=== PATIENT | female | born 1945 | race African-American/Black ===

== ENCOUNTER 2017-12-07 17:47 | Inpatient (IN) | payer MEDICARE ==
[~2017-12-07] VITALS: Ht 167.6 cm; Wt 78.9 kg
[2017-12-07] MEDS ORDERED: CYMBALTA30 MG ORAL (18:07)
[2017-12-07] MEDS ORDERED: METOPROLOL TART50 M1 ORAL (18:07)
[2017-12-07] MEDS ORDERED: BENAZEPRIL HCL20 MG ORAL (18:07)
[2017-12-07] MEDS ORDERED: AMLODIPINE BESY10 MG ORAL (18:07)
[2017-12-07] MEDS ORDERED: LIPITOR20 MG ORAL (18:07)
[2017-12-07] MEDS ORDERED: BACLOFEN10 MG ORAL (18:07)
[2017-12-07] MEDS ORDERED: ASPIR 8181 MG ORAL (18:07)
[2017-12-07 18:14] VITALS: BP 138/80
[2017-12-07 18:40] LABS: BASOPHILS % (AUTO) 1.9 % (0.0-2.0); EOSINOPHILS % (AUTO) 1.4 % (0.0-3.0); HEMATOCRIT 40.6 % (37.0-47.0); HEMOGLOBIN 13.2 G/DL (12.0-16.0); MEAN CORPUSCULAR VOLUME 87 FL (80-99); MONOCYTES % (AUTO) 8.2 % (1.0-10.0); NEUTROPHILS % (AUTO) 55.6 % (45.0-75.0); PLATELET COUNT 174 K/UL (150-450); RED BLOOD COUNT 4.66 M/UL (4.20-5.40); RED CELL DISTRIBUTION WIDTH 12.3 % (11.6-14.8); WHITE BLOOD COUNT 5.8 K/UL (4.8-10.8)
[2017-12-07 18:47] LABS: ANION GAP 9 mmol/L (5-15); BLOOD UREA NITROGEN 13 mg/dL (7-18); CALCIUM 9.7 MG/DL (8.5-10.1); CARBON DIOXIDE 27 MMOL/L (21-32); CHLORIDE 106 MMOL/L (98-107); CREATININE 0.8 MG/DL (0.55-1.30); POTASSIUM 3.8 MMOL/L (3.5-5.1); SODIUM 142 MMOL/L (136-145)
[2017-12-07 18:52] LABS: ALANINE AMINOTRANSFERASE 38 U/L (12-78); ALBUMIN/GLOBULIN RATIO 0.9 (1.0-2.7); ALKALINE PHOSPHATASE 98 U/L (46-116); ASPARTATE AMINO TRANSFERASE 34 U/L (15-37); BILIRUBIN,TOTAL 0.3 MG/DL (0.2-1.0)
[2017-12-07 20:10] VITALS: BP 121/77
[2017-12-07 21:48] VITALS: BP 120/77
[2017-12-07 21:51] LABS: APPEARANCE,URINE CLEAR; BILIRUBIN, URINE NEGATIVE (NEGATIVE); COLOR,URINE PALE YELLOW; GLUCOSE, URINE (UA) NEGATIVE (NEGATIVE); KETONES,URINE NEGATIVE (NEGATIVE); LEUKOCYTE ESTERASE ,URINE 3+ (NEGATIVE); NITRITE,URINE NEGATIVE (NEGATIVE); PH,URINE 7 (4.5-8.0); PROTEIN,URINE NEGATIVE (NEGATIVE); UROBILINOGEN,URINE NORMAL MG/DL (0.0-1.0)
[2017-12-07] MEDS ORDERED: Mylanta II UD 30ml ORAL PRN (22:00)
[2017-12-07] MEDS ORDERED: Nitroglycerin Subl 0.4mg tab SL PRN (22:00)
[2017-12-07] MEDS ORDERED: Albuterol/Ipratropium 3ml neb HHN PRN (22:00)
[2017-12-07] MEDS ORDERED: Morphine Sulfate 2mg/ml Inj IVP PRN (22:00)
[2017-12-07] MEDS ORDERED: LORazepam Inj 2mg/ml 1ml IV PRN (22:00)
[2017-12-07] MEDS ORDERED: Miralax 17gm pkt ORAL PRN (22:00)
--- NOTE | 2017-12-07 23:32 | Emergency Room Report ---
History of Present Illness General Chief Complaint: Altered Level of Consciousness Source: Medical Record Present Illness HPI Patient is a 72-year-old female brought in by EMS after increased confusion. Patient had recent been seen by her primary care physician and was sent to the hospital for further evaluation. Patient was noted to have normally oriented 3. Patient had been more confused. This had relatively sudden onset. Patient was brought in by EMS. The patient was poorly cooperative with history. Allergies: Coded Allergies: No Known Allergies (Unverified , 12/07/17) Patient History Past Medical History: see triage record Reviewed Nursing Documentation: PMH: Agreed; PSxH: Agreed Nursing Documentation-PMH Past Medical History: No History, Except For Hx Hypertension: Yes Review of Systems All Other Systems: negative except mentioned in HPI Physical Exam Vital Signs Date Time Temp Pulse Resp B/P (MAP) Pulse Ox O2 Delivery O2 Flow Rate FiO2 12/07/17 17:35 97.9 68 18 138/80 96 Room Air 97.9 Sp02 EP Interpretation: reviewed, normal General Appearance: normal inspection, well appearing, no apparent distress, alert, GCS 15, obese Head: atraumatic ENT: normal ENT inspection, hearing grossly normal, normal voice Neck: normal inspection, full range of motion, supple, no bony tend Respiratory: normal inspection, lungs clear, normal breath sounds, no respiratory distress, no retraction, no wheezing Cardiovascular #1: regular rate, rhythm, no edema Gastrointestinal: normal inspection, normal bowel sounds, non tender, soft, no guarding, no hernia Genitourinary: no CVA tenderness Musculoskeletal: normal inspection, back normal, normal range of motion Neurologic: normal inspection, alert, responsive, cloth beamer III-XII nml as tested, motor strength/tone normal, speech normal Psychiatric: normal inspection, judgement/insight normal, mood/affect normal Skin: normal inspection, normal color, no rash Medical Decision Making Diagnostic Impression: Primary Impression: Acute encephalopathy ER Course Patient presented for altered mental status.Differential diagnosis included but was not limited to ischemic stroke, subarachnoid hemorrhage, hypoglycemia, spinal cord injury, neurodegenerative disorder, urinary tract infection, hypoxemia.Because of complexity of patient's case laboratory testing and imaging studies were ordered. The CT of the head read by radiology showed no evidence of acute hemorrhage or CVA. The patient was given oral aspirin. Lab for studies are unremarkable.Dr. Lavell Espinoza was contacted for inpatient management. Labs Test 12/07/17 18:10 12/07/17 21:05 White Blood Count 5.8 K/UL (4.8-10.8) Red Blood Count 4.66 M/UL (4.20-5.40) Hemoglobin 13.2 G/DL (12.0-16.0) Hematocrit 40.6 % (37.0-47.0) Mean Corpuscular Volume 87 FL (80-99) Mean Corpuscular Hemoglobin 28.3 PG (27.0-31.0) Mean Corpuscular Hemoglobin Concent 32.5 G/DL (32.0-36.0) Red Cell Distribution Width 12.3 % (11.6-14.8) Platelet Count 174 K/UL (150-450) Mean Platelet Volume 9.8 FL (6.5-10.1) Neutrophils (%) (Auto) 55.6 % (45.0-75.0) Lymphocytes (%) (Auto) 33.0 % (20.0-45.0) Monocytes (%) (Auto) 8.2 % (1.0-10.0) Eosinophils (%) (Auto) 1.4 % (0.0-3.0) Basophils (%) (Auto) 1.9 % (0.0-2.0) Prothrombin Time 10.0 SEC (9.30-11.50) Prothromb Time International Ratio 1.0 (0.9-1.1) Activated Partial Thromboplast Time 25 SEC (23-33) Sodium Level 142 MMOL/L (136-145) Potassium Level 3.8 MMOL/L (3.5-5.1) Chloride Level 106 MMOL/L (98-107) Carbon Dioxide Level 27 MMOL/L (21-32) Anion Gap 9 mmol/L (5-15) Blood Urea Nitrogen 13 mg/dL (7-18) Creatinine 0.8 MG/DL (0.55-1.30) Estimat Glomerular Filtration Rate mL/min (>60) Glucose Level 128 MG/DL (74-106) Calcium Level 9.7 MG/DL (8.5-10.1) Total Bilirubin 0.3 MG/DL (0.2-1.0) Aspartate Amino Transf (AST/SGOT) 34 U/L (15-37) Alanine Aminotransferase (ALT/SGPT) 38 U/L (12-78) Alkaline Phosphatase 98 U/L (46-116) Troponin I 0.000 ng/mL (0.000-0.056) Total Protein 8.4 G/DL (6.4-8.2) Albumin 4.0 G/DL (3.4-5.0) Globulin 4.4 g/dL Albumin/Globulin Ratio 0.9 (1.0-2.7) Urine Color Pale yellow Urine Appearance Clear Urine pH 7 (4.5-8.0) Urine Specific [place] 1.010 (1.005-1.035) Urine Protein Negative (NEGATIVE) Urine Glucose (UA) Negative (NEGATIVE) Urine Ketones Negative (NEGATIVE) Urine Occult Blood Negative (NEGATIVE) Urine Nitrite Negative (NEGATIVE) Urine Bilirubin Negative (NEGATIVE) Urine Urobilinogen Normal MG/DL (0.0-1.0) Urine Leukocyte Esterase 3+ (NEGATIVE) Urine RBC 0-2 /HPF (0 - 2) Urine WBC 5-10 /HPF (0 - 2) Urine Squamous Epithelial Cells Few /LPF (NONE/OCC) Urine Bacteria Few /HPF (NONE) Last Vital Signs Date Time Temp Pulse Resp B/P (MAP) Pulse Ox O2 Delivery O2 Flow Rate FiO2 12/07/17 21:48 98.0 65 13 120/77 98 Room Air 98.0 Status: improved Disposition: ADMITTED INPATIENT Condition: Serious Referrals: MELISSA DOUGLAS (PCP) Jeremy Eller Dec 07, 2017 23:32
[2017-12-08] VITALS: BP 111/60
[2017-12-08 04:00] VITALS: BP 98/56
[2017-12-08 07:56] LABS: BASOPHILS % (AUTO) 1.7 % (0.0-2.0); HEMATOCRIT 37.5 % (37.0-47.0); HEMOGLOBIN 12.1 G/DL (12.0-16.0); LYMPHOCYTES % (AUTO) 41.6 % (20.0-45.0); MEAN CORPUSCULAR VOLUME 88 FL (80-99); MONOCYTES % (AUTO) 8.8 % (1.0-10.0); NEUTROPHILS % (AUTO) 45.8 % (45.0-75.0); PLATELET COUNT 163 K/UL (150-450); RED BLOOD COUNT 4.28 M/UL (4.20-5.40); RED CELL DISTRIBUTION WIDTH 12.4 % (11.6-14.8); WHITE BLOOD COUNT 5.2 K/UL (4.8-10.8)
[2017-12-08 07:59] VITALS: BP 93/50
[2017-12-08 08:32] LABS: ALANINE AMINOTRANSFERASE 29 U/L (12-78); ALBUMIN 3.2 G/DL (3.4-5.0); ALBUMIN/GLOBULIN RATIO 0.9 (1.0-2.7); ALKALINE PHOSPHATASE 81 U/L (46-116); ANION GAP 6 mmol/L (5-15); ASPARTATE AMINO TRANSFERASE 28 U/L (15-37); BILIRUBIN,TOTAL 0.2 MG/DL (0.2-1.0); BLOOD UREA NITROGEN 13 mg/dL (7-18); CALCIUM 8.9 MG/DL (8.5-10.1); CARBON DIOXIDE 29 MMOL/L (21-32); CHLORIDE 110 MMOL/L (98-107); CHOLESTEROL 128 MG/DL (< 200); CREATININE 0.7 MG/DL (0.55-1.30); HDL CHOLESTEROL 59 MG/DL (40-60); POTASSIUM 4.4 MMOL/L (3.5-5.1); SODIUM 145 MMOL/L (136-145); TRIGLYCERIDES 25 MG/DL (30-150)
[2017-12-08] MEDS: DULoxetine 30mg cap ORAL SCH (08:52)
[2017-12-08] MEDS: Heparin 5000 units/ml inj SUBQ SCH ×2 (08:53→21:00)
[2017-12-08] MEDS ORDERED: Metoprolol Tartrate 50mg tab ORAL SCH (09:00)
--- NOTE | 2017-12-08 09:14 | Diagnostic Imaging Report ---
Indications: Sludge in mental status and head pain Technique: Spiral acquisitions obtained through the brain. Angled axial and coronal 5 x 5 mm slices were reconstructed. Total dose length product 1333.86 mGycm. CTDI vol(s) 70.38 mGy. Dose reduction achieved using automated exposure control Comparison: None. Findings: No acute intracranial hemorrhage or edema. No mass effect or midline shift. There is mild age-related enlargement of the ventricles and extra axial CSF spaces, as well as periventricular deep white matter low-attenuation consistent with chronic ischemic changes. The calvarium is intact. Impression: Chronic and age-related changes Negative for acute intracranial bleed or mass effect The CT scanner at [facility] is accredited by the [employer] and the scans are performed using protocols designed to limit radiation exposure to as low as reasonably achievable to attain images of sufficient resolution adequate for diagnostic evaluation.
[2017-12-08 12:09] VITALS: BP 115/71
--- NOTE | 2017-12-08 13:45 | Consultation ---
History of Present Illness General Date patient seen: Dec 08, 2017 Chief Complaint: Altered Level of Consciousness Present Illness HPI 72-year-old female with hx of HTN brought in by EMS after increased confusion. Patient had recent been seen by her primary care physician and was sent to the hospital for further evaluation. Patient was noted to have normally oriented 3. Patient had been more confused. This had relatively sudden onset. The CT of head was negative. She is admitted to telemetry for further work up. Allergies: Coded Allergies: No Known Allergies (Unverified , 12/07/17) Medication History Scheduled Amlodipine Besylate* (Amlodipine Besylate*), 10 MG ORAL DAILY, (Reported) Aspirin* (Aspir 81*), 81 MG ORAL DAILY, (Reported) Atorvastatin Calcium* (Lipitor*), 20 MG ORAL BEDTIME, (Reported) Baclofen* (Baclofen*), 10 MG ORAL THREE TIMES A DAY, (Reported) Benazepril Hcl* (Benazepril Hcl*), 20 MG ORAL EVERY 12 HOURS, (Reported) Duloxetine Hcl* (Cymbalta*), 30 MG ORAL DAILY, (Reported) Metoprolol Tartrate* (Metoprolol Tartrate*), 50 MG ORAL EVERY 12 HOURS, ( Reported) Patient History Healthcare decision maker Resuscitation status Full Code Advanced Directive on File No Past Medical/Surgical History Past Medical/Surgical History: (1) History of hypertension Review of Systems All Other Systems: negative except mentioned in HPI Physical Exam Lines, tubes and drains: peripheral HEENT: normocephalic, anicteric Neck: non-tender, supple Respiratory/Chest: lungs clear, normal breath sounds Cardiovascular/Chest: normal rate, regular rhythm Abdomen: normal bowel sounds, non tender Genitourinary/Rectal: normal genital exam, normal rectal exam Extremities: normal range of motion, non-tender Skin Exam: normal pigmentation, cyanotic Neurologic: no motor/sensory deficits Last 24 Hour Vital Signs Date Time Temp Pulse Resp B/P (MAP) Pulse Ox O2 Delivery O2 Flow Rate FiO2 12/08/17 12:09 97.3 70 19 115/71 98 Room Air 97.3 12/08/17 11:42 84 12/08/17 08:57 71 12/08/17 08:22 98 16 Nasal Cannula 2.0 28 12/08/17 08:22 Nasal Cannula 2.0 28 12/08/17 08:22 98 Nasal Cannula 2.0 28 12/08/17 08:00 63 93/50 12/08/17 08:00 63 93/50 12/08/17 07:59 97.3 63 19 93/50 98 Room Air 97.3 12/08/17 04:00 97.0 19 98/56 98 Room Air 97.0 12/08/17 00:00 67 12/08/17 00:00 97.7 64 20 111/60 98 Room Air 97.7 12/07/17 21:50 98.0 65 13 120/77 98 Room Air 98.0 12/07/17 21:48 98.0 65 13 120/77 98 Room Air 98.0 12/07/17 20:10 97.9 65 13 121/77 98 Room Air 97.9 12/07/17 18:14 97.9 65 13 138/80 98 Room Air 97.9 12/07/17 17:35 97.9 68 18 138/80 96 Room Air 97.9 Intake and Output 12/07/17 12/08/17 19:00 07:00 Intake Total 0 ml Balance 0 ml Intake Oral 0 ml # Voids 1 Laboratory Tests Test 12/07/17 18:10 12/07/17 21:05 12/08/17 07:00 White Blood Count 5.8 K/UL (4.8-10.8) 5.2 K/UL (4.8-10.8) Red Blood Count 4.66 M/UL (4.20-5.40) 4.28 M/UL (4.20-5.40) Hemoglobin 13.2 G/DL (12.0-16.0) 12.1 G/DL (12.0-16.0) Hematocrit 40.6 % (37.0-47.0) 37.5 % (37.0-47.0) Mean Corpuscular Volume 87 FL (80-99) 88 FL (80-99) Mean Corpuscular Hemoglobin 28.3 PG (27.0-31.0) 28.3 PG (27.0-31.0) Mean Corpuscular Hemoglobin Concent 32.5 G/DL (32.0-36.0) 32.3 G/DL (32.0-36.0) Red Cell Distribution Width 12.3 % (11.6-14.8) 12.4 % (11.6-14.8) Platelet Count 174 K/UL (150-450) 163 K/UL (150-450) Mean Platelet Volume 9.8 FL (6.5-10.1) 9.9 FL (6.5-10.1) Neutrophils (%) (Auto) 55.6 % (45.0-75.0) 45.8 % (45.0-75.0) Lymphocytes (%) (Auto) 33.0 % (20.0-45.0) 41.6 % (20.0-45.0) Monocytes (%) (Auto) 8.2 % (1.0-10.0) 8.8 % (1.0-10.0) Eosinophils (%) (Auto) 1.4 % (0.0-3.0) 2.0 % (0.0-3.0) Basophils (%) (Auto) 1.9 % (0.0-2.0) 1.7 % (0.0-2.0) Prothrombin Time 10.0 SEC (9.30-11.50) 10.4 SEC (9.30-11.50) Prothromb Time International Ratio 1.0 (0.9-1.1) 1.0 (0.9-1.1) Activated Partial Thromboplast Time 25 SEC (23-33) 24 SEC (23-33) Sodium Level 142 MMOL/L (136-145) 145 MMOL/L (136-145) Potassium Level 3.8 MMOL/L (3.5-5.1) 4.4 MMOL/L (3.5-5.1) Chloride Level 106 MMOL/L (98-107) 110 MMOL/L (98-107) H Carbon Dioxide Level 27 MMOL/L (21-32) 29 MMOL/L (21-32) Anion Gap 9 mmol/L (5-15) 6 mmol/L (5-15) Blood Urea Nitrogen 13 mg/dL (7-18) 13 mg/dL (7-18) Creatinine 0.8 MG/DL (0.55-1.30) 0.7 MG/DL (0.55-1.30) Estimat Glomerular Filtration Rate mL/min (>60) mL/min (>60) Glucose Level 128 MG/DL (74-106) H 94 MG/DL (74-106) Calcium Level 9.7 MG/DL (8.5-10.1) 8.9 MG/DL (8.5-10.1) Total Bilirubin 0.3 MG/DL (0.2-1.0) 0.2 MG/DL (0.2-1.0) Aspartate Amino Transf (AST/SGOT) 34 U/L (15-37) 28 U/L (15-37) Alanine Aminotransferase (ALT/SGPT) 38 U/L (12-78) 29 U/L (12-78) Alkaline Phosphatase 98 U/L (46-116) 81 U/L (46-116) Troponin I 0.000 ng/mL (0.000-0.056) Total Protein 8.4 G/DL (6.4-8.2) H 6.8 G/DL (6.4-8.2) Albumin 4.0 G/DL (3.4-5.0) 3.2 G/DL (3.4-5.0) L Globulin 4.4 g/dL 3.6 g/dL Albumin/Globulin Ratio 0.9 (1.0-2.7) L 0.9 (1.0-2.7) L Urine Color Pale yellow Urine Appearance Clear Urine pH 7 (4.5-8.0) Urine Specific [place] 1.010 (1.005-1.035) Urine Protein Negative (NEGATIVE) Urine Glucose (UA) Negative (NEGATIVE) Urine Ketones Negative (NEGATIVE) Urine Occult Blood Negative (NEGATIVE) Urine Nitrite Negative (NEGATIVE) Urine Bilirubin Negative (NEGATIVE) Urine Urobilinogen Normal MG/DL (0.0-1.0) Urine Leukocyte Esterase 3+ (NEGATIVE) H Urine RBC 0-2 /HPF (0 - 2) Urine WBC 5-10 /HPF (0 - 2) H Urine Squamous Epithelial Cells Few /LPF (NONE/OCC) Urine Bacteria Few /HPF (NONE) Triglycerides Level 25 MG/DL (30-150) L Cholesterol Level 128 MG/DL (< 200) LDL Cholesterol 69 mg/dL (<100) HDL Cholesterol 59 MG/DL (40-60) Cholesterol/HDL Ratio 2.2 (3.3-4.4) L Thyroid Stimulating Hormone (TSH) 0.993 uiU/mL (0.358-3.740) Height (Feet): 5 Height (Inches): 6.00 Weight (Pounds): 174 Medications Current Medications Medications (Trade) Dose Ordered Sig/Tevin Route PRN Reason Start Time Stop Time Status Last Admin Dose Admin Acetaminophen (Tylenol) 650 mg Q4H PRN ORAL fever 12/07/17 22:00 01/06/18 21:59 Al Hydroxide/Mg Hydroxide (Mylanta II) 30 ml Q6H PRN ORAL dyspepsia 12/07/17 22:00 01/06/18 21:59 Albuterol/ Ipratropium (Albuterol/ Ipratropium) 3 ml EVERY 4 HOURS PRN HHN Shortness of Breath 12/07/17 22:00 12/12/17 21:59 Amlodipine Besylate (Norvasc) 10 mg DAILY ORAL 12/08/17 09:00 01/07/18 08:59 Dextrose (Dextrose 50%) STAT PRN IV Hypoglycemia 12/07/17 22:00 01/06/18 21:59 Duloxetine HCl (Cymbalta) 30 mg DAILY ORAL 12/08/17 09:00 01/07/18 08:59 12/08/17 08:52 Heparin Sodium (Porcine) (Heparin 5000 units/ml) 5,000 units EVERY 12 HOURS SUBQ 12/08/17 09:00 01/07/18 08:59 Lorazepam (Ativan 2mg/ml 1ml) 0.5 mg Q4H PRN IV For Anxiety 12/07/17 22:00 12/14/17 21:59 Metoprolol Tartrate (Lopressor) 50 mg EVERY 12 HOURS ORAL 12/08/17 09:00 01/07/18 08:59 Morphine Sulfate (Morphine Sulfate) 1 mg EVERY 4 HOURS PRN IVP For Pain 7-10 12/07/17 22:00 12/14/17 21:59 Nitroglycerin (Ntg) 0.4 mg Q5M X 3 DOSES PRN SL Prn Chest Pain 12/07/17 22:00 01/06/18 21:59 Ondansetron HCl (Zofran) 4 mg Q6H PRN IVP Nausea & Vomiting 12/07/17 22:00 01/06/18 21:59 Polyethylene Glycol (Miralax) 17 gm HSPRN PRN ORAL Constipation 12/07/17 22:00 01/06/18 21:59 Temazepam (Restoril) 15 mg HSPRN PRN ORAL Insomnia 12/07/17 22:00 12/14/17 21:59 Assessment/Plan Problem List: (1) Acute encephalopathy ICD Codes: G93.40 - Encephalopathy, unspecified SNOMED: 60706431, 532871036 (2) Polypharmacy ICD Codes: Z79.899 - Other terminal worker (current) drug therapy SNOMED: 307240357 (3) History of hypertension ICD Codes: Z86.79 - Personal history of other diseases of the circulatory system SNOMED: 748572515 Assessment/Plan telemetry monitoring f/u by neuro and cardio hold some of the BP meds, since pt systolic Bp is around 90 now echocardiogram doppler of carotid artery symptomatic treatment. Jarod Duarte MD Dec 08, 2017 13:45
--- NOTE | 2017-12-08 14:03 | Cardiology Report ---
APPROVED REPORT EXAM: Two-dimensional and M-mode echocardiogram with Doppler and color Doppler. INDICATION LV FUNCTIOM M-Mode DIMENSIONS IVSd1.4 (0.7-1.1cm)Left Atrium (MM)3.8 (1.6-4.0cm) LVDd3.2 (3.5-5.6cm)Aortic Root3.2 (2.0-3.7cm) PWd1.0 (0.7-1.1cm)Aortic Cusp Exc.2.0 (1.5-2.0cm) IVSs1.8 cm LVDs2.2 (2.5-4.0cm) PWs1.5 cm Normal left ventricular chamber size, systolic function and wall motion to extent visualized. Left ventricular ejection fraction estimated to be 60-65 %. No evidence of left ventricular hypertrophy . No evidence of pericardial pericardial effusion. All other cardiac chamber sizes are within normal limits. Focal aortic valve sclerosis with adequate cusp excursion. Mildly Thickened mitral valve leaflets with normal excursion. Midly Mitral annulus and aortic root calcification. Pulmonic valve not well visualized. Normal tricuspid valve structure. A color flow and spectral Doppler study was performed and revealed: No aortic regurgitation. Trace mitral regurgitation. Mitral diastolic velocities suggest reduced left ventricular relaxation c/w mild LV diastolic dysfunction (Grade I ). Mild tricuspid regurgitation. Tricuspid systolic velocities suggests peak right ventricular systolic pressure of 35 mmHg, consistent with mild pulmonary hypertension. No Pulmonic regurgitation present.
--- NOTE | 2017-12-08 14:49 | Cardiology Report ---
APPROVED REPORT EKG Measurement Heart [id number] Normal sinus rhythm Left axis deviation Cannot rule out Anterior infarct, age undetermined Abnormal ECG
--- NOTE | 2017-12-08 14:59 | Consultation ---
Consult Note Consult Note NEUROLOGY CONSULTATION: Full note dictated #[id number] 72 y/o, RH, BF with PH of HTN and 6 month H/O memory problems. She was at her Drs office on 12/07/17 and was noted to be confused and was thus brought into the [facility] [place] [facility]. ON EXAM: Disoriented to date, month and name of Hosp. Trace R-VII central. Right FE and IP weakness. LABS with mild UTI. IMPRESSION: Toxic encephalopathy +/- underlying dementia. REC: w/u cognitive decline. MRI of brain to evaluate right paresis. Observe. Emiliano Haque M.D., M.S.P.H. EMILIANO HAQUE Dec 08, 2017 14:59
--- NOTE | 2017-12-08 15:53 | History & Physical ---
History and Physical History & Physicial job # [id number] Lavell Espinoza MD Dec 08, 2017 15:53
[2017-12-08 16:16] VITALS: BP 120/67
--- NOTE | 2017-12-08 19:16 | Cardiology Progress Note ---
Assessment/Plan Assessment/Plan htn , hypertriglyceridemia dementia metabolic encephalopathy conteinu home meds cardiacwise stable dc tele in am if stabel [id number] Objective Last 24 Hour Vital Signs Date Time Temp Pulse Resp B/P (MAP) Pulse Ox O2 Delivery O2 Flow Rate FiO2 12/08/17 16:16 97.3 73 19 120/67 98 Room Air 97.3 12/08/17 16:14 76 12/08/17 16:00 97.3 12/08/17 15:01 97.3 12/08/17 12:09 97.3 70 19 115/71 98 Room Air 97.3 12/08/17 11:42 84 12/08/17 08:57 71 12/08/17 08:22 98 16 Nasal Cannula 2.0 28 12/08/17 08:22 Nasal Cannula 2.0 28 12/08/17 08:22 98 Nasal Cannula 2.0 28 12/08/17 08:00 63 93/50 12/08/17 08:00 63 93/50 12/08/17 07:59 97.3 63 19 93/50 98 Room Air 97.3 12/08/17 04:00 97.0 19 98/56 98 Room Air 97.0 12/08/17 00:00 67 12/08/17 00:00 97.7 64 20 111/60 98 Room Air 97.7 12/07/17 21:50 98.0 65 13 120/77 98 Room Air 98.0 12/07/17 21:48 98.0 65 13 120/77 98 Room Air 98.0 12/07/17 20:10 97.9 65 13 121/77 98 Room Air 97.9 Intake and Output 12/07/17 12/08/17 19:00 07:00 Intake Total 0 ml Balance 0 ml Intake Oral 0 ml # Voids 1 Laboratory Tests Test 12/07/17 21:05 12/08/17 07:00 Urine Color Pale yellow Urine Appearance Clear Urine pH 7 (4.5-8.0) Urine Specific [place] 1.010 (1.005-1.035) Urine Protein Negative (NEGATIVE) Urine Glucose (UA) Negative (NEGATIVE) Urine Ketones Negative (NEGATIVE) Urine Occult Blood Negative (NEGATIVE) Urine Nitrite Negative (NEGATIVE) Urine Bilirubin Negative (NEGATIVE) Urine Urobilinogen Normal MG/DL (0.0-1.0) Urine Leukocyte Esterase 3+ (NEGATIVE) H Urine RBC 0-2 /HPF (0 - 2) Urine WBC 5-10 /HPF (0 - 2) H Urine Squamous Epithelial Cells Few /LPF (NONE/OCC) Urine Bacteria Few /HPF (NONE) White Blood Count 5.2 K/UL (4.8-10.8) Red Blood Count 4.28 M/UL (4.20-5.40) Hemoglobin 12.1 G/DL (12.0-16.0) Hematocrit 37.5 % (37.0-47.0) Mean Corpuscular Volume 88 FL (80-99) Mean Corpuscular Hemoglobin 28.3 PG (27.0-31.0) Mean Corpuscular Hemoglobin Concent 32.3 G/DL (32.0-36.0) Red Cell Distribution Width 12.4 % (11.6-14.8) Platelet Count 163 K/UL (150-450) Mean Platelet Volume 9.9 FL (6.5-10.1) Neutrophils (%) (Auto) 45.8 % (45.0-75.0) Lymphocytes (%) (Auto) 41.6 % (20.0-45.0) Monocytes (%) (Auto) 8.8 % (1.0-10.0) Eosinophils (%) (Auto) 2.0 % (0.0-3.0) Basophils (%) (Auto) 1.7 % (0.0-2.0) Prothrombin Time 10.4 SEC (9.30-11.50) Prothromb Time International Ratio 1.0 (0.9-1.1) Activated Partial Thromboplast Time 24 SEC (23-33) Sodium Level 145 MMOL/L (136-145) Potassium Level 4.4 MMOL/L (3.5-5.1) Chloride Level 110 MMOL/L (98-107) H Carbon Dioxide Level 29 MMOL/L (21-32) Anion Gap 6 mmol/L (5-15) Blood Urea Nitrogen 13 mg/dL (7-18) Creatinine 0.7 MG/DL (0.55-1.30) Estimat Glomerular Filtration Rate mL/min (>60) Glucose Level 94 MG/DL (74-106) Calcium Level 8.9 MG/DL (8.5-10.1) Total Bilirubin 0.2 MG/DL (0.2-1.0) Aspartate Amino Transf (AST/SGOT) 28 U/L (15-37) Alanine Aminotransferase (ALT/SGPT) 29 U/L (12-78) Alkaline Phosphatase 81 U/L (46-116) Total Protein 6.8 G/DL (6.4-8.2) Albumin 3.2 G/DL (3.4-5.0) L Globulin 3.6 g/dL Albumin/Globulin Ratio 0.9 (1.0-2.7) L Triglycerides Level 25 MG/DL (30-150) L Cholesterol Level 128 MG/DL (< 200) LDL Cholesterol 69 mg/dL (<100) HDL Cholesterol 59 MG/DL (40-60) Cholesterol/HDL Ratio 2.2 (3.3-4.4) L Thyroid Stimulating Hormone (TSH) 0.993 uiU/mL (0.358-3.740) MIKE BARNES Dec 08, 2017 19:16
[2017-12-08 20:00] VITALS: BP 122/67
--- NOTE | 2017-12-08 20:15 | Consultation ---
DATE OF CONSULTATION: 12/08/2017 NEUROLOGY CONSULTATION CONSULTING PHYSICIAN: Ambrose Haque M.D. REQUESTING PHYSICIANS: Jarod Duarte M.D. & Lavell Espinoza M.D. HISTORY: Ms. Kristy Oropeza is a 72-year-old, right-handed, black lady, who does have a past history of hypertension and an approximately six-month history of memory problems and forgetfulness. As per the patient, she was functioning relatively well until approximately six months ago when she started to notice that her memory was not as sharp as it used to be. She would forget to do simple chores. She would go to do shopping and would forget what she went to shop for. She would misplace things at home and these problems have been progressively worsening. On 12/07/2017, she was at her doctor's office and he noticed a significant decline in her condition and thought that she was significantly confused. As a result of that, she was brought into the [facility] Emergency Room. She was evaluated in the emergency room with a CT scan of the brain, which was reportedly benign. She also had laboratory tests done, which revealed a relatively normal CBC, relatively normal chemistry panel except for a blood glucose elevated to 128, normal TSH at 0.99, but her urinalysis revealed 3+ leukocyte esterase, 0-2 red blood cells, and 5-10 white blood cells per high-power field with a few bacteria. This consultation was requested to evaluate the patient for her altered mental state. At this point in time, the patient tells me that she still feels a little confused and disoriented. She also says that she has had a generalized headache for the last few days. She denies any weakness on one side or the other, numbness on one side or the other, problems with speech, problems with language, problems with vision, or other neurological problems. PAST MEDICAL HISTORY: Significant for high blood pressure for numerous years and memory problems that started approximately six months ago. FAMILY HISTORY: Significant for high blood pressure in other family members. PERSONAL HISTORY: Home: She lives alone. 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 Habits: She denies the use of alcohol, tobacco, or illicit drugs. PRESENT MEDICATIONS: Include Norvasc, Cymbalta, heparin for DVT prophylaxis, DuoNeb inhaler p.r.n., Tylenol p.r.n., morphine p.r.n., MiraLAX p.r.n., Zofran p.r.n., lorazepam p.r.n., temazepam p.r.n., nitroglycerin p.r.n., and Mylanta p.r.n. PHYSICAL EXAMINATION: GENERAL: She is a well-developed, well-nourished, slightly obese black lady, sitting up at the edge of her bed, in no acute distress. VITAL SIGNS: Pulse 70 per minute, blood pressure 115/71 mmHg, respirations 19 per minute, and temperature 97.3 degrees Fahrenheit. HEAD: Normocephalic and atraumatic. EENT: Examination benign. NECK: No neck rigidity was observed. NEUROLOGIC EXAMINATION: MENTAL STATUS EXAMINATION: She was awake and alert. She was oriented to self, year and hospital. She, however, did not know the date, month, or name of the hospital. She was able to recall 3/3 words immediately, but could not remember any of them in 1 minute and 3 minutes even on the third trial. She was able to remember presidents, Trump and Obama, but could not remember presidents prior to that. Her mathematical skills were impaired. Her visuospatial function was also impaired. SPEECH: She had no dysarthria. LANGUAGE: She had an anomia for low-frequency words. CRANIAL NERVE EXAMINATION: II: The visual fagan were intact to confrontation testing. III, IV & : The external ocular movements were full and the pupils 3 mm in diameter, equal, round, regular, and reactive to light. V: She had normal facial sensations and the temporales, masseters, and pterygoids function normally. VII: She had a trace right VII central facial paresis. VIII: She was able to hear well bilaterally and had no nystagmus. IX: The palate moved symmetrically on phonation. X: She had no hoarseness of voice. XI: The sternocleidomastoids and trapezii functioned normally. XII: The tongue was in the midline without any fasciculations or atrophy. MOTOR SYSTEM: The tone was normal in all four extremities. Examination of muscle mass revealed no focal wasting. Examination of power revealed G 5/5 power except for G 4+/5 power in the right finger extensors and iliopsoas. SENSORY EXAMINATION: She had intact sensations to pinprick, light touch, and graphesthesia. COORDINATION: She performed well on ahcbcq-id-kars and ykzl-wy-shpn testing. Romberg test was negative. REFLEXES: 1+ and bilaterally symmetrical at the biceps, triceps, brachioradialis, and knees and 0 at both ankles. The plantar responses were flexor bilaterally. STANCE: She had a normal stance. GAIT: She walked relatively well with contact guard. DIAGNOSTIC IMPRESSION: 1. Ms. Kristy Oropeza is a 72-year-old, right-handed, black lady, with a past history of hypertension for numerous years and memory problems for the last six months. She was at her doctor's office on 12/07/2017 and was noted to be significantly confused and disoriented and as a result of that was brought into the [facility] emergency room. 2. On neurological examination at this time, she is disoriented to date, month, and name of the hospital. She has significant problems with recent and remote memory, visuospatial function, higher cognitive function, and language. In addition, she also has a trace right VII central facial paresis, and right finger extensor and iliopsoas weakness. 3. The CT scan of the brain without contrast is benign. 4. Laboratory data are relatively benign except for an elevated blood sugar and findings compatible with mild urinary tract infection. 5. The patient's history and neurological examination are most compatible with a toxic encephalopathy most probably related to the urinary tract infection with a superimposed underlying progressive cognitive decline, which may be of a primary degenerative nature. However, other treatable causes should be excluded. RECOMMENDATIONS: 1. Agree with management thus far. 2. The patient should be worked up thoroughly for treatable causes of cognitive dysfunction with in addition to the laboratory tests already done, a B12 level, folate level, vitamin D level, RPR, glycohemoglobin, Westergren sedimentation rate, and TSH. 3. An MRI scan of the brain should be performed to evaluate the patient for her mild right paresis. 4. Her urinary tract infection should be treated appropriately. 5. The patient will be observed closely and depending on how she fares over the next day or so, further recommendations will be given. Thank you for entrusting me with the care of Ms. Oropeza. I shall follow her with you. Ambrose Haque M.D., M.S.P.H. DR: IVY JOB#: [id number] MTDD
--- NOTE | 2017-12-08 22:30 | History and Physical Report ---
DATE OF ADMISSION: 12/07/2017 CHIEF COMPLAINT: Altered mental status. HISTORY OF PRESENT ILLNESS: This is a 72-year-old female with past medical history significant for hypertension, dyslipidemia, and history of lumbar spine surgery due to the lumbar disc herniation, who has presented to the hospital accompanied with the EMS after she was noted to be more confused and disoriented. The patient was seen by the primary doctor and subsequently was advised to come to the emergency room for evaluation. Shortly after initial evaluation in the emergency room, the patient was noted to be more confused and disoriented and subsequently was admitted to the hospital. The patient had a CT scan of the head that was essentially unremarkable and the patient subsequently was admitted to the hospital with acute encephalopathy. PAST MEDICAL HISTORY/PAST SURGICAL HISTORY: As above. History of hypertension, dyslipidemia, as well as lumbar spine surgery due to the lumbar spine disc herniation. MEDICATIONS AT HOME: Significant for amlodipine 10 mg daily, aspirin 81 mg daily, atorvastatin 20 mg at night, baclofen 10 mg 3 times a day, benazepril 20 mg twice a day, doxycycline, Cymbalta 30 mg daily, and metoprolol 50 mg twice a day. ALLERGIES: No known drug allergies. SOCIAL HISTORY: Denies any smoking. She socially drinks. No substance abuse. FAMILY HISTORY: Noncontributory. REVIEW OF SYSTEMS: Mostly as above. Denies any dysuria, frequency, or hematuria. Denies any hemoptysis or hematochezia. She is just complaining about weakness and coldness in the lower extremity. Denies any double vision. Denies any suicidal or homicidal ideation. Complained about headache, which has resolved. Denies any fever or chills. PHYSICAL EXAMINATION: VITAL SIGNS: On admission, temperature of 97.9, pulse of 68, respirations 18, and blood pressure 138/80. GENERAL: The patient is awake, responsive, and in no acute distress. HEAD AND NECK: Pupils are equal and reactive to light. Extraocular movements are intact. NECK: Supple. No JVD. LUNGS: Good air entry. No wheezing or rales. HEART: Reveals S1 and S2. Regular rhythm. No gallops. ABDOMEN: Soft, nondistended, and nontender. Mildly obese. EXTREMITIES: No cyanosis, clubbing, or edema. NEUROLOGIC: Cranial nerves II through XII are grossly intact. Motor is 5/5 in all extremities. Gait is intact. Right lower extremity has weakness. RECTAL/GENITOURINARY: Refused and deferred. LABORATORY DATA: On admission, urinalysis +3 leukocytes, 5 to 10 wbc, otherwise few squamous cells. UA has epithelial cells well. Sodium 142, potassium 3.8, chloride 106, bicarb 27, BUN 13, creatinine 0.8, and glucose is 128. First troponin 0.00. The patient's albumin is 4.0 and total protein is 8.4. WBC of 5.8, hemoglobin 13, hematocrit 40, and platelets is 174,000. PT of 10, INR 1.0, and PTT of 25. CT of the head was done and chronic and age-related changes. No acute intracranial bleeding or mass was identified. The patient had an echocardiogram with an ejection fraction of 60% to 65% with no evidence of the left ventricular hypertrophy. ASSESSMENT: 1. Altered mental status due to the acute toxic metabolic encephalopathy, possible polypharmacy. 2. Hypertension. 3. Dyslipidemia. 4. Obesity. 5. 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 PLAN: 1. Admit the patient to monitored unit. 2. We will follow up laboratory. 3. Discussed the case with Dr. Ambrose Haque from Neurology and Dr. Duarte from Pulmonary Critical Care. We will follow up with the laboratory as well as neuro check. If the patient's status improved, consider discharge home to be followed up with primary doctor as outpatient. 4. Code status Full Code. 5. DVT prophylaxis with heparin subcutaneous. 6. Primary doctor is . Lavell Espinoza M.D. DR: KEVIN JOB#: [id number] CC:
[2017-12-09] VITALS: BP 135/78
[2017-12-09 04:00] VITALS: BP 127/68
--- NOTE | 2017-12-09 04:00 | Consultation ---
DATE OF CONSULTATION: 12/08/2017 CARDIOLOGY CONSULTATION REFERRING PHYSICIAN: Lavell Espinoza M.D. REASON FOR REFERRAL: Altered mentation. HISTORY OF PRESENT ILLNESS: This is an elderly female, who apparently is followed by Dr. An. The patient was sent to the emergency room at [facility] according to the emergency room physician because of evaluation of confusion of apparently new onset. When I asked the patient about her reason for admission, she tells me that she was having a headache and she told Dr. An that and she was sent here. She denies any diabetes. She does admit to having high blood pressure. No history of heart attack. No high cholesterol. No cancer. No stroke, hepatitis, tuberculosis, asthma, emphysema. No ulcers, kidney problems, liver problems, thyroid problems, anemia, or arthritis. Her chart at [facility] was reviewed. 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 ALLERGIES: She denies any allergies to medications. SOCIAL HISTORY: She has a remote history of smoking. No drinking alcoholic beverages except for rare occasions. No drug use. REVIEW OF SYSTEMS: GASTROINTESTINAL: She denies. GENITOURINARY: She denies. PULMONARY: She denies. CONSTITUTIONAL: She denies. NEUROLOGIC: She denies. PHYSICAL EXAMINATION: GENERAL: Shows to be an elderly female, in no respiratory distress. VITAL SIGNS: Blood pressure 120/67, temperature 97.3 degrees, . HEENT: Unremarkable. NECK: Supple. No jugular venous distention. No abdominojugular reflux noted. LUNGS: Clear to auscultation and percussion. CARDIAC: S1 is normal. S2 is normal. Regular rate and rhythm. No heaves, thrills, or gallops noted. ABDOMEN: Soft and nontender. Positive bowel sounds. EXTREMITIES: There is no edema. NEUROLOGICAL: She is awake and alert. LABORATORY AND DIAGNOSTIC DATA: An echocardiogram was performed, it showed ejection fraction of 60% to 65%, no significant regurgitation lesions. The carotid duplex study was within normal limits. EKG shows normal sinus rhythm, leftward axis, delay in R-wave progression, but no other significant abnormalities. Her blood tests, white count 5.2, hemoglobin 12.1, and platelet count 163,000. Sodium is 145, potassium 4.4, chloride 100, bicarbonate 29, BUN 13, creatinine 0.7, and glucose of 94. Troponin was negative. Triglycerides of 25, total cholesterol 128, LDL of 69, and HDL 59. TSH is 0.993. INR is 1.0 and PTT of 24. Urinalysis, 5 to 10 WBCs, 0 to 2 RBCs, and 3+ leukocyte esterase. Imaging, CT scan of the head was performed, chronic age-related changes. ASSESSMENT AND PLAN: 1. Altered mentation toxic metabolic encephalopathy. 2. History of hypertension. 3. History of chronic headaches. 4. History of hypertriglyceridemia. Dr. Espinoza, this patient was seen in cardiac consultation. The patient appears not to have any signs or symptoms of congestive heart failure or coronary artery disease. EKG is unremarkable. She should be maintained on her usual dose of aspirin and Lipitor as well as benazepril, metoprolol, and amlodipine as indicated as her list of home medications as the patient's blood pressure allows and further recommendations will be provided depending on any issues that may come up cardiovascularly, although at the present time, she appears to be stable. She may have a component of urinary tract infection that may be affecting her mentation, but I will leave that up to yourself to evaluate. Cortez Amezcua M.D. DR: Eduar JOB#: [id number] CC:
[2017-12-09 08:00] VITALS: BP 130/73
[2017-12-09] MEDS: DULoxetine 30mg cap ORAL SCH (09:11)
[2017-12-09] MEDS: Heparin 5000 units/ml inj SUBQ SCH ×2 (09:13→20:06)
--- NOTE | 2017-12-09 09:26 | Diagnostic Imaging Report ---
Indication: Altered mental status, rule out stroke Technique: MRI the brain performed utilizing T1 sagittal, T2 axial, T1 FLAIR axial, T2 FLAIR axial, T2*GRE, sagittal T2 FLAIR and diffusion axial images without gadolinium. Comparison: CT head 12/07/2017 Findings: No diffusion abnormalities are seen on diffusion weighted imaging. No focal signal dropout on GRE. The sulci, ventricles and cisterns are prominent consistent with atrophy. Periventricular and supratentorial white matter T2 hyperintensity are seen without mass effect. There is no shift of midline structures. No significant extra-axial collections of fluid or blood are demonstrated. The sella and parasellar regions are unremarkable. Expected signal flow voids are seen of the vessels of the skull base. Visualized mastoid air cells and paranasal sinuses are unremarkable. No focal bony calvarium or soft tissue lesions are seen. IMPRESSION: No evidence of acute infarct. No acute intracranial hemorrhage, mass effect or midline shift. Periventricular and supratentorial white matter T2 hyperintensity without mass effect, a nonspecific finding most commonly related to sequela of chronic microvascular ischemic changes.
[2017-12-09 12:00] VITALS: BP 130/73
--- NOTE | 2017-12-09 12:41 | Pulmonology Progress Note ---
Assessment/Plan Problems: (1) Acute encephalopathy (2) Polypharmacy (3) History of hypertension Assessment/Plan MRI: Periventricular and supratentorial white matter T2 hyperintensity without mass effect, commonly related to sequela of chronic microvascular ischemic changes Cardio and neuro note appreciated telemetry reviewed symptomatic treatment med/surg pt/ot Subjective Interval Events: c/o short episodes of confusion Allergies: Coded Allergies: No Known Allergies (Unverified , 12/07/17) Objective Last 24 Hour Vital Signs Date Time Temp Pulse Resp B/P (MAP) Pulse Ox O2 Delivery O2 Flow Rate FiO2 12/09/17 12:00 97.5 74 18 130/73 99 Room Air 97.5 12/09/17 09:11 86 130/73 12/09/17 08:07 Room Air 21 12/09/17 08:07 99 Room Air 21 12/09/17 08:06 86 16 Room Air 21 12/09/17 08:00 97.5 80 18 130/73 99 Room Air 97.5 12/09/17 04:00 97.5 80 18 127/68 97 Room Air 97.5 12/09/17 04:00 81 12/09/17 00:00 97.4 78 19 135/78 97 Room Air 97.4 12/09/17 00:00 82 12/08/17 20:00 77 12/08/17 20:00 97.3 74 18 122/67 97 Room Air 97.3 12/08/17 19:15 89 16 Nasal Cannula 2.0 28 12/08/17 19:15 Nasal Cannula 2.0 28 12/08/17 19:15 98 Nasal Cannula 2.0 28 12/08/17 16:16 97.3 73 19 120/67 98 Room Air 97.3 12/08/17 16:14 76 12/08/17 16:00 97.3 12/08/17 15:01 97.3 Intake and Output 12/08/17 12/09/17 19:00 07:00 Intake Total 560 ml Balance 560 ml Intake Oral 560 ml # Voids 1 General Appearance: WD/WN, no acute distress HEENT: atraumatic Respiratory/Chest: chest wall non-tender, lungs clear, normal breath sounds Cardiovascular: normal peripheral pulses, normal rate, regular rhythm Abdomen: normal bowel sounds, soft, non tender Genitourinary: normal external genitalia Extremities: no cyanosis Skin: no rash 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 normal, no motor/sensory deficits Laboratory Tests 12/08/17 20:20: Erythrocyte Sedimentation Rate 34H, Hemoglobin A1c 5.8, Vitamin B12 Level 636, Vitamin D 25-Hydroxy [Pending], 25-Hydroxy Vitamin D2 [Pending], 25-Hydroxy Vitamin D3 [Pending], Folate 6.3L, Rapid Plasma Reagin [Pending] Current Medications Medications (Trade) Dose Ordered Sig/Tevin Route PRN Reason Start Time Stop Time Status Last Admin Dose Admin Acetaminophen (Tylenol) 650 mg Q4H PRN ORAL fever 12/07/17 22:00 01/06/18 21:59 12/08/17 15:01 Al Hydroxide/Mg Hydroxide (Mylanta II) 30 ml Q6H PRN ORAL dyspepsia 12/07/17 22:00 01/06/18 21:59 Albuterol/ Ipratropium (Albuterol/ Ipratropium) 3 ml EVERY 4 HOURS PRN HHN Shortness of Breath 12/07/17 22:00 12/12/17 21:59 Amlodipine Besylate (Norvasc) 5 mg DAILY ORAL 12/09/17 09:00 01/08/18 08:59 12/09/17 09:11 Dextrose (Dextrose 50%) 25 ml STAT PRN IV Hypoglycemia 12/08/17 14:00 01/07/18 13:59 Dextrose (Dextrose 50%) 50 ml STAT PRN IV Hypoglycemia 12/08/17 14:00 01/07/18 13:59 Duloxetine HCl (Cymbalta) 30 mg DAILY ORAL 12/08/17 09:00 01/07/18 08:59 12/09/17 09:11 Heparin Sodium (Porcine) (Heparin 5000 units/ml) 5,000 units EVERY 12 HOURS SUBQ 12/08/17 09:00 01/07/18 08:59 12/09/17 09:13 Lorazepam (Ativan 2mg/ml 1ml) 0.5 mg Q4H PRN IV For Anxiety 12/07/17 22:00 12/14/17 21:59 Morphine Sulfate (Morphine Sulfate) 1 mg EVERY 4 HOURS PRN IVP For Pain 7-10 12/07/17 22:00 12/14/17 21:59 Nitroglycerin (Ntg) 0.4 mg Q5M X 3 DOSES PRN SL Prn Chest Pain 12/07/17 22:00 01/06/18 21:59 Ondansetron HCl (Zofran) 4 mg Q6H PRN IVP Nausea & Vomiting 12/07/17 22:00 01/06/18 21:59 Polyethylene Glycol (Miralax) 17 gm HSPRN PRN ORAL Constipation 12/07/17 22:00 01/06/18 21:59 Temazepam (Restoril) 15 mg HSPRN PRN ORAL Insomnia 12/07/17 22:00 12/14/17 21:59 Jarod Duarte MD Dec 09, 2017 12:41
[2017-12-09] MEDS ORDERED: Albuterol/Ipratropium 3ml neb HHN PRN (14:00)
[2017-12-09] MEDS ORDERED: Nitroglycerin Subl 0.4mg tab SL PRN (14:15)
--- NOTE | 2017-12-09 14:28 | Cardiology Progress Note ---
Assessment/Plan Problem List: (1) UTI (urinary tract infection) (2) History of hypertension (3) Acute encephalopathy Status: stable, progressing Status Narrative Mrs. Oropeza is stable from a cardiac standpoint. BP is controlled. There are no anginal or CHF symptoms. Telemetry has shown SR. She has AMS/confusion - ? chronic v acute Assessment/Plan Continue amlodipine for HTN. Neurology evaluation in progress. Rx of UTI per primary team. Agree w/ transfer from telemetry to med-surg Subjective ROS Limited/Unobtainable: No Subjective Cardiology for Dr. Amezcua Mrs. Oropeza has no c/o. She is alert/confused. Does not know that why she is in the hospital. Objective Last 24 Hour Vital Signs Date Time Temp Pulse Resp B/P (MAP) Pulse Ox O2 Delivery O2 Flow Rate FiO2 12/09/17 12:00 78 12/09/17 12:00 97.5 74 18 130/73 99 Room Air 97.5 12/09/17 09:11 86 130/73 12/09/17 08:07 Room Air 21 12/09/17 08:07 99 Room Air 21 12/09/17 08:06 86 16 Room Air 21 12/09/17 08:00 83 12/09/17 08:00 97.5 80 18 130/73 99 Room Air 97.5 12/09/17 04:00 97.5 80 18 127/68 97 Room Air 97.5 12/09/17 04:00 81 12/09/17 00:00 97.4 78 19 135/78 97 Room Air 97.4 12/09/17 00:00 82 12/08/17 20:00 77 12/08/17 20:00 97.3 74 18 122/67 97 Room Air 97.3 12/08/17 19:15 89 16 Nasal Cannula 2.0 28 12/08/17 19:15 Nasal Cannula 2.0 28 12/08/17 19:15 98 Nasal Cannula 2.0 28 12/08/17 16:16 97.3 73 19 120/67 98 Room Air 97.3 12/08/17 16:14 76 12/08/17 16:00 97.3 12/08/17 15:01 97.3 General Appearance: WD/WN, no apparent distress, alert EENT: PERRL/EOMI Neck: supple, no JVD Rhythm: NSR Cardiovascular: normal rate, regular rhythm, no gallop/murmur Respiratory/Chest: lungs clear Abdomen: non tender, soft, no mass Extremities: no swelling Intake and Output 12/08/17 12/09/17 19:00 07:00 Intake Total 560 ml Balance 560 ml Intake Oral 560 ml # Voids 1 Laboratory Tests Test 12/08/17 20:20 Erythrocyte Sedimentation Rate 34 MM/HR (0-30) H Hemoglobin A1c 5.8 % (4.3-6.0) Vitamin B12 Level 636 PG/ML (193-986) Vitamin D 25-Hydroxy Pending 25-Hydroxy Vitamin D2 Pending 25-Hydroxy Vitamin D3 Pending Folate 6.3 NG/ML (8.6-58.9) L Rapid Plasma Reagin Pending LOLIS JOHNSON Dec 09, 2017 14:28
[2017-12-09] MEDS ORDERED: LORazepam Inj 2mg/ml 1ml IV PRN (14:30)
--- NOTE | 2017-12-09 14:31 | Neurology Progress Note ---
Interim History Interim History Interim History Ms. rOopeza feels better. She feels that her mind is clearer. She denies any new medical problems. She specifically denies any weakness on one side or the other, numbness on one side or the other, problems with speech or problems with language. Review of Systems Neuro Review of Systems Benign. Objective Physical Exam Last Vital Signs Date Time Temp Pulse Resp B/P (MAP) Pulse Ox O2 Delivery O2 Flow Rate FiO2 12/09/17 12:00 78 12/09/17 12:00 97.5 18 130/73 99 Room Air 97.5 12/09/17 08:07 21 12/08/17 19:15 2.0 Laboratory Tests Test 12/08/17 20:20 Erythrocyte Sedimentation Rate 34 MM/HR (0-30) H Hemoglobin A1c 5.8 % (4.3-6.0) Vitamin B12 Level 636 PG/ML (193-986) Vitamin D 25-Hydroxy Pending 25-Hydroxy Vitamin D2 Pending 25-Hydroxy Vitamin D3 Pending Folate 6.3 NG/ML (8.6-58.9) L Rapid Plasma Reagin Pending Neurologic Exam Objective PHYSICAL EXAMINATION: GENERAL: She is a well-developed, well-nourished, slightly obese black lady, lying in bed, in no acute distress. HEAD: Normocephalic and atraumatic. EENT: Examination benign. NECK: No neck rigidity was observed. NEUROLOGIC EXAMINATION: MENTAL STATUS EXAMINATION: She was awake and alert. She was oriented to self, year and hospital. She, however, did not know the date, month, or name of the hospital. She was able to recall 3/3 words immediately, but could only remember 1/3 in 1 minute and 3 minutes even on the third trial. She was able to remember presidents, Trump and Obama, but could not remember presidents prior to that. Her mathematical skills were impaired. Her visuospatial function was also impaired. SPEECH: She had no dysarthria. LANGUAGE: She had an anomia for low-frequency words. CRANIAL NERVE EXAMINATION: II: The visual fagan were intact to confrontation testing. III, IV & : The external ocular movements were full and the pupils 3 mm in diameter, equal, round, regular, and reactive to light. V: She had normal facial sensations and the temporales, masseters, and pterygoids function normally. VII: She had a trace right VII central facial paresis. VIII: She was able to hear well bilaterally and had no nystagmus. IX: The palate moved symmetrically on phonation. X: She had no hoarseness of voice. XI: The sternocleidomastoids and trapezii functioned normally. XII: The tongue was in the midline without any fasciculations or atrophy. MOTOR SYSTEM: The tone was normal in all four extremities. Examination of muscle mass revealed no focal wasting. Examination of power revealed G 5/5 power except for G 4+/5 power in the right finger extensors and iliopsoas. SENSORY EXAMINATION: She had intact sensations to pinprick, light touch, and graphesthesia. COORDINATION: She performed well on [id number] and [id number] testing. Romberg test was negative. REFLEXES: 1+ and bilaterally symmetrical at the biceps, triceps, brachioradialis, and knees and 0 at both ankles. The plantar responses were flexor bilaterally. STANCE: She had a normal stance. GAIT: She walked relatively well with contact guard. Impression/Recommendations Diagnostic Impression 1. Ms. Kristy Oropeza is a 72-year-old, right-handed, black lady, with a past history of hypertension for numerous years and memory problems for the last six months. She was at her doctor's office on 12/07/2017 and was noted to be significantly confused and disoriented and as a result of that was brought into the [facility] emergency room. 2. She feels better. She feels that her mind is clearer. She denies any new medical problems. 3. On neurological examination at this time, she is disoriented to date, month, and name of the hospital. She has significant problems with recent and remote memory, visuospatial function, higher cognitive function, and language. In addition, she also has a trace right VII central facial paresis, and right finger extensor and iliopsoas weakness. 4. The CT scan of the brain without contrast is benign. 5. The MRI of the brain doen on 12/08/17 revealed no acute pathology but did reveal periventricular and supratentorial white matter T2 hyperintensity without mass effect, related to sequela of chronic microvascular ischemic changes. 6. Laboratory data are relatively benign except for an elevated blood sugar and findings compatible with mild urinary tract infection. She is also folic acid deficient. 7. The patient's history and neurological examination are most compatible with a toxic encephalopathy most probably related to the urinary tract infection with a superimposed underlying progressive cognitive decline, which may be of a primary degenerative nature. It is unclear as to how muc the folic acid deficiency could be contributing. Recommendations 1. Continue present management. 2. Her urinary tract infection should be treated appropriately. 3. Folic acid 1 mg daily. 4. If it is felt that her memory disturbance is definitely a dementia she should be started on Aricept and then Namenda should be added to her regimen. Emiliano Haque M.D., M.S.[facility]. EMILIANO HAQUE Dec 09, 2017 14:31
[2017-12-09] MEDS ORDERED: Mylanta II UD 30ml ORAL PRN (15:00)
--- NOTE | 2017-12-09 15:26 | Internal Med Progress Note ---
Subjective Date of Service: Dec 09, 2017 Physician Name Javed Bates Attending Physician Lavell Espinoza MD Current Medications Medications (Trade) Dose Ordered Sig/Tevin Route PRN Reason Start Time Stop Time Status Last Admin Dose Admin Acetaminophen (Tylenol) 650 mg Q4H PRN ORAL T>100.5 12/09/17 15:00 01/06/18 14:59 Al Hydroxide/Mg Hydroxide (Mylanta II) 30 ml Q6H PRN ORAL dyspepsia 12/09/17 15:00 01/06/18 14:59 Albuterol/ Ipratropium (Albuterol/ Ipratropium) 3 ml Q4H PRN HHN Shortness of Breath 12/09/17 14:00 12/14/17 13:59 Amlodipine Besylate (Norvasc) 5 mg DAILY ORAL 12/10/17 09:00 01/08/18 08:59 Dextrose (Dextrose 50%) 25 ml STAT PRN IV Hypoglycemia 12/10/17 14:00 01/07/18 13:59 Dextrose (Dextrose 50%) 50 ml STAT PRN IV Hypoglycemia 12/10/17 14:00 01/07/18 13:59 Duloxetine HCl (Cymbalta) 30 mg DAILY ORAL 12/10/17 09:00 01/07/18 08:59 Folic Acid (Folate) 1 mg DAILY ORAL 12/10/17 09:00 01/09/18 08:59 Heparin Sodium (Porcine) (Heparin 5000 units/ml) 5,000 units EVERY 12 HOURS SUBQ 12/09/17 21:00 01/07/18 08:59 Lorazepam (Ativan 2mg/ml 1ml) 0.5 mg Q4H PRN IV For Anxiety 12/09/17 14:30 12/14/17 14:29 Morphine Sulfate (Morphine Sulfate) 1 mg Q4H PRN IVP Severe Pain (Pain Scale 7-10) 12/09/17 17:00 12/16/17 16:59 Nitroglycerin (Ntg) 0.4 mg Q5M X 3 DOSES PRN SL Prn Chest Pain 12/09/17 14:15 01/06/18 21:59 Ondansetron HCl (Zofran) 4 mg Q6H PRN IVP Nausea & Vomiting 12/09/17 14:00 01/06/18 13:59 Polyethylene Glycol (Miralax) 17 gm HSPRN PRN ORAL Constipation 12/09/17 21:00 01/06/18 20:59 Temazepam (Restoril) 15 mg HSPRN PRN ORAL Insomnia 12/09/17 21:00 12/14/17 20:59 Allergies: Coded Allergies: No Known Allergies (Unverified , 12/07/17) ROS Limited/Unobtainable: No Constitutional: Reports: no symptoms HEENT: Reports: no symptoms Cardiovascular: Reports: no symptoms Respiratory: Reports: no symptoms Gastrointestinal/Abdominal: Reports: no symptoms Genitourinary: Reports: no symptoms Neurologic/Psychiatric: Reports: no symptoms Subjective 72 YO F admitted with altered mental status. Cover for Int Med-Dr Espinoza Objective Last Vital Signs Date Time Temp Pulse Resp B/P (MAP) Pulse Ox O2 Delivery O2 Flow Rate FiO2 12/09/17 12:00 78 12/09/17 12:00 97.5 18 130/73 99 Room Air 97.5 12/09/17 08:07 21 12/08/17 19:15 2.0 General Appearance: WD/WN, no apparent distress, alert EENT: PERRL/EOMI, normal ENT inspection Neck: non-tender, normal alignment, supple Cardiovascular: normal peripheral pulses, normal rate, regular rhythm, no gallop/murmur, no JVD Respiratory/Chest: chest wall non-tender, lungs clear, normal breath sounds, no respiratory distress, no accessory muscle use Abdomen: normal bowel sounds, non tender, soft, no organomegaly, no mass Extremities: normal range of motion Neurologic: associate team physician II-XII grossly normal, no motor/sensory deficits Skin: normal pigmentation, warm/dry Laboratory Tests Test 12/08/17 20:20 Erythrocyte Sedimentation Rate 34 MM/HR (0-30) H Hemoglobin A1c 5.8 % (4.3-6.0) Vitamin B12 Level 636 PG/ML (193-986) Vitamin D 25-Hydroxy Pending 25-Hydroxy Vitamin D2 Pending 25-Hydroxy Vitamin D3 Pending Folate 6.3 NG/ML (8.6-58.9) L Rapid Plasma Reagin Pending Intake and Output 12/08/17 12/09/17 19:00 07:00 Intake Total 560 ml Balance 560 ml Intake Oral 560 ml # Voids 1 Assessment/Plan Problem List: (1) Altered mental status Assessment & Plan: MRI brain=WNL (2) HTN (hypertension) Assessment & Plan: continue norvasc (3) Hypercholesteremia (4) Lumbar stenosis (5) Hemiparesis, right Assessment & Plan: See neuro note. Status: progressing JAVED BATES Dec 09, 2017 15:26
[2017-12-09 15:55] VITALS: BP 124/71
[2017-12-09] MEDS ORDERED: Morphine Sulfate 4mg/ml Inj IVP PRN (17:00)
[2017-12-09 20:00] VITALS: BP 144/83
[2017-12-09] MEDS ORDERED: Miralax 17gm pkt ORAL PRN (21:00)
[2017-12-10 00:15] VITALS: BP 139/86
[2017-12-10 03:16] VITALS: BP 140/78
[2017-12-10 07:47] LABS: ALANINE AMINOTRANSFERASE 31 U/L (12-78); ALBUMIN 3.1 G/DL (3.4-5.0); ALBUMIN/GLOBULIN RATIO 0.8 (1.0-2.7); ALKALINE PHOSPHATASE 75 U/L (46-116); ANION GAP 4 mmol/L (5-15); ASPARTATE AMINO TRANSFERASE 25 U/L (15-37); BILIRUBIN,TOTAL 0.3 MG/DL (0.2-1.0); BLOOD UREA NITROGEN 12 mg/dL (7-18); CALCIUM 9.1 MG/DL (8.5-10.1); CARBON DIOXIDE 29 MMOL/L (21-32); CHLORIDE 104 MMOL/L (98-107); CREATININE 0.7 MG/DL (0.55-1.30); POTASSIUM 4.1 MMOL/L (3.5-5.1); SODIUM 137 MMOL/L (136-145)
[2017-12-10 07:49] LABS: EOSINOPHILS % (AUTO) 1.1 % (0.0-3.0); HEMATOCRIT 34.7 % (37.0-47.0); HEMOGLOBIN 11.5 G/DL (12.0-16.0); LYMPHOCYTES % (AUTO) 46.4 % (20.0-45.0); MEAN CORPUSCULAR VOLUME 87 FL (80-99); MONOCYTES % (AUTO) 9.3 % (1.0-10.0); NEUTROPHILS % (AUTO) 42.2 % (45.0-75.0); PLATELET COUNT 177 K/UL (150-450); RED BLOOD COUNT 4.01 M/UL (4.20-5.40); WHITE BLOOD COUNT 6.1 K/UL (4.8-10.8)
[2017-12-10 08:00] VITALS: BP 135/75
[2017-12-10] MEDS: DULoxetine 30mg cap ORAL SCH (08:10)
[2017-12-10] MEDS: Heparin 5000 units/ml inj SUBQ SCH ×2 (08:12→20:19)
--- NOTE | 2017-12-10 14:24 | Pulmonology Progress Note ---
Assessment/Plan Problems: (1) Acute encephalopathy (2) Polypharmacy (3) History of hypertension Assessment/Plan MRI: Periventricular and supratentorial white matter T2 hyperintensity without mass effect, commonly related to sequela of chronic microvascular ischemic changes Cardio and neuro note appreciated symptomatic treatment psych and neuro evaluation med/surg pt/ot Subjective ROS Limited/Unobtainable: No Allergies: Coded Allergies: No Known Allergies (Unverified , 12/07/17) Objective Last 24 Hour Vital Signs Date Time Temp Pulse Resp B/P (MAP) Pulse Ox O2 Delivery O2 Flow Rate FiO2 12/10/17 08:11 87 135/75 12/10/17 08:00 97.7 87 18 135/75 97 97.7 12/10/17 04:23 Room Air 12/10/17 03:16 97.7 86 19 140/78 98 Room Air 97.7 12/10/17 00:15 97.5 82 22 139/86 96 Room Air 97.5 12/10/17 00:00 Room Air 12/09/17 20:00 Room Air 12/09/17 20:00 97.7 89 20 144/83 96 97.7 12/09/17 19:10 Room Air 21 12/09/17 19:10 97 Room Air 21 12/09/17 19:10 76 20 Room Air 21 12/09/17 16:00 Room Air 12/09/17 15:55 98.1 76 20 124/71 97 98.1 Intake and Output 12/09/17 12/10/17 19:00 07:00 Intake Total 356 ml Balance 356 ml Intake Oral 356 ml # Voids 1 Objective General Appearance: WD/WN HEENT: normocephalic, atraumatic Respiratory/Chest: chest wall non-tender, lungs clear Cardiovascular: normal peripheral pulses, normal rate, regular rhythm Abdomen: normal bowel sounds, soft, non tender Genitourinary: normal external genitalia Extremities: no cyanosis Skin: no rash General Appearance: WD/WN Laboratory Tests 12/10/17 05:20: White Blood Count 6.1, Red Blood Count 4.01L, Hemoglobin 11.5L, Hematocrit 34.7L , Mean Corpuscular Volume 87, Mean Corpuscular Hemoglobin 28.7, Mean Corpuscular Hemoglobin Concent 33.2, Red Cell Distribution Width 12.0, Platelet Count 177, Mean Platelet Volume 9.7, Neutrophils (%) (Auto) 42.2L, Lymphocytes ( %) (Auto) 46.4H, Monocytes (%) (Auto) 9.3, Eosinophils (%) (Auto) 1.1, Basophils (%) (Auto) 1.0, Sodium Level 137, Potassium Level 4.1, Chloride Level 104, Carbon Dioxide Level 29, Anion Gap 4L, Blood Urea Nitrogen 12, Creatinine 0.7, Estimat Glomerular Filtration Rate , Glucose Level 91, Calcium Level 9.1, Phosphorus Level 3.0, Magnesium Level 1.7L, Total Bilirubin 0.3, Aspartate Amino Transf (AST/SGOT) 25, Alanine Aminotransferase (ALT/SGPT) 31, Alkaline Phosphatase 75, Total Protein 6.8, Albumin 3.1L, Globulin 3.7, Albumin/Globulin Ratio 0.8L Current Medications Medications (Trade) Dose Ordered Sig/Tevin Route PRN Reason Start Time Stop Time Status Last Admin Dose Admin Acetaminophen (Tylenol) 650 mg Q4H PRN ORAL T>100.5 12/09/17 15:00 01/06/18 14:59 Al Hydroxide/Mg Hydroxide (Mylanta II) 30 ml Q6H PRN ORAL dyspepsia 12/09/17 15:00 01/06/18 14:59 Albuterol/ Ipratropium (Albuterol/ Ipratropium) 3 ml Q4H PRN HHN Shortness of Breath 12/09/17 14:00 12/14/17 13:59 Amlodipine Besylate (Norvasc) 5 mg DAILY ORAL 12/10/17 09:00 01/08/18 08:59 12/10/17 08:11 Dextrose (Dextrose 50%) 25 ml STAT PRN IV Hypoglycemia 12/10/17 14:00 01/07/18 13:59 Dextrose (Dextrose 50%) 50 ml STAT PRN IV Hypoglycemia 12/10/17 14:00 01/07/18 13:59 Duloxetine HCl (Cymbalta) 30 mg DAILY ORAL 12/10/17 09:00 01/07/18 08:59 12/10/17 08:10 Folic Acid (Folate) 1 mg DAILY ORAL 12/10/17 09:00 01/09/18 08:59 12/10/17 08:10 Heparin Sodium (Porcine) (Heparin 5000 units/ml) 5,000 units EVERY 12 HOURS SUBQ 12/09/17 21:00 01/07/18 08:59 12/10/17 08:12 Lorazepam (Ativan 2mg/ml 1ml) 0.5 mg Q4H PRN IV For Anxiety 12/09/17 14:30 12/14/17 14:29 12/09/17 18:31 Morphine Sulfate (Morphine Sulfate) 1 mg Q4H PRN IVP Severe Pain (Pain Scale 7-10) 12/09/17 17:00 12/16/17 16:59 Nitroglycerin (Ntg) 0.4 mg Q5M X 3 DOSES PRN SL Prn Chest Pain 12/09/17 14:15 01/06/18 21:59 Ondansetron HCl (Zofran) 4 mg Q6H PRN IVP Nausea & Vomiting 12/09/17 14:00 01/06/18 13:59 Polyethylene Glycol (Miralax) 17 gm HSPRN PRN ORAL Constipation 12/09/17 21:00 01/06/18 20:59 Risperidone (RisperDAL) 0.25 mg QHS ORAL 12/09/17 20:45 01/08/18 20:44 12/09/17 22:02 Temazepam (Restoril) 15 mg HSPRN PRN ORAL Insomnia 12/09/17 21:00 12/14/17 20:59 Jarod Duarte MD Dec 10, 2017 14:24
--- NOTE | 2017-12-10 14:29 | Neurology Progress Note ---
Interim History Interim History Interim History Ms. Oropeza feels better. She feels that her mind is clearer. She however continues to be forgetful. She denies any new medical problems. She specifically denies any weakness on one side or the other, numbness on one side or the other, problems with speech or problems with language. Review of Systems Neuro Review of Systems Benign. Objective Physical Exam Last Vital Signs Date Time Temp Pulse Resp B/P (MAP) Pulse Ox O2 Delivery O2 Flow Rate FiO2 12/10/17 08:11 87 135/75 12/10/17 08:00 97.7 18 97 97.7 12/10/17 04:23 Room Air 12/09/17 19:10 21 12/08/17 19:15 2.0 Laboratory Tests Test 12/10/17 05:20 White Blood Count 6.1 K/UL (4.8-10.8) Red Blood Count 4.01 M/UL (4.20-5.40) L Hemoglobin 11.5 G/DL (12.0-16.0) L Hematocrit 34.7 % (37.0-47.0) L Mean Corpuscular Volume 87 FL (80-99) Mean Corpuscular Hemoglobin 28.7 PG (27.0-31.0) Mean Corpuscular Hemoglobin Concent 33.2 G/DL (32.0-36.0) Red Cell Distribution Width 12.0 % (11.6-14.8) Platelet Count 177 K/UL (150-450) Mean Platelet Volume 9.7 FL (6.5-10.1) Neutrophils (%) (Auto) 42.2 % (45.0-75.0) L Lymphocytes (%) (Auto) 46.4 % (20.0-45.0) H Monocytes (%) (Auto) 9.3 % (1.0-10.0) Eosinophils (%) (Auto) 1.1 % (0.0-3.0) Basophils (%) (Auto) 1.0 % (0.0-2.0) Sodium Level 137 MMOL/L (136-145) Potassium Level 4.1 MMOL/L (3.5-5.1) Chloride Level 104 MMOL/L (98-107) Carbon Dioxide Level 29 MMOL/L (21-32) Anion Gap 4 mmol/L (5-15) L Blood Urea Nitrogen 12 mg/dL (7-18) Creatinine 0.7 MG/DL (0.55-1.30) Estimat Glomerular Filtration Rate mL/min (>60) Glucose Level 91 MG/DL (74-106) Calcium Level 9.1 MG/DL (8.5-10.1) Phosphorus Level 3.0 MG/DL (2.5-4.9) Magnesium Level 1.7 MG/DL (1.8-2.4) L Total Bilirubin 0.3 MG/DL (0.2-1.0) Aspartate Amino Transf (AST/SGOT) 25 U/L (15-37) Alanine Aminotransferase (ALT/SGPT) 31 U/L (12-78) Alkaline Phosphatase 75 U/L (46-116) Total Protein 6.8 G/DL (6.4-8.2) Albumin 3.1 G/DL (3.4-5.0) L Globulin 3.7 g/dL Albumin/Globulin Ratio 0.8 (1.0-2.7) L Neurologic Exam Objective PHYSICAL EXAMINATION: GENERAL: She is a well-developed, well-nourished, slightly obese black lady, lying in bed, in no acute distress. HEAD: Normocephalic and atraumatic. EENT: Examination benign. NECK: No neck rigidity was observed. NEUROLOGIC EXAMINATION: MENTAL STATUS EXAMINATION: She was awake and alert. She was oriented to self, year and hospital. She, however, did not know the date, month, or name of the hospital. She was able to recall 3/3 words immediately, but could not remember any of them in 1 minute and 3 minutes even on the third trial. She was able to remember presidents, Trump and Obama, but could not remember presidents prior to that. Her mathematical skills were impaired. Her visuospatial function was also impaired. SPEECH: She had no dysarthria. LANGUAGE: She had an anomia for low-frequency words. CRANIAL NERVE EXAMINATION: II: The visual fagan were intact to confrontation testing. III, IV & : The external ocular movements were full and the pupils 3 mm in diameter, equal, round, regular, and reactive to light. V: She had normal facial sensations and the temporales, masseters, and pterygoids function normally. VII: She had a trace right VII central facial paresis. VIII: She was able to hear well bilaterally and had no nystagmus. IX: The palate moved symmetrically on phonation. X: She had no hoarseness of voice. XI: The sternocleidomastoids and trapezii functioned normally. XII: The tongue was in the midline without any fasciculations or atrophy. MOTOR SYSTEM: The tone was normal in all four extremities. Examination of muscle mass revealed no focal wasting. Examination of power revealed G 5/5 power except for G 5-/5 power in the right finger extensors and iliopsoas. SENSORY EXAMINATION: She had intact sensations to pinprick, light touch, and graphesthesia. COORDINATION: She performed well on [id number] and [id number] testing. Romberg test was negative. REFLEXES: 1+ and bilaterally symmetrical at the biceps, triceps, brachioradialis, and knees and 0 at both ankles. The plantar responses were flexor bilaterally. STANCE: She had a normal stance. GAIT: She walked well independently. Impression/Recommendations Diagnostic Impression 1. Ms. Kristy Oropeza is a 72-year-old, right-handed, black lady, with a past history of hypertension for numerous years and memory problems for the last six months. She was at her doctor's office on 12/07/2017 and was noted to be significantly confused and disoriented and as a result of that was brought into the [facility] emergency room. 2. She feels better. She feels that her mind is clearer. She denies any new medical problems. 3. On neurological examination at this time, she is disoriented to date, month, and name of the hospital. She has significant problems with recent and remote memory, visuospatial function, higher cognitive function, and language. In addition, she also has a trace right VII central facial paresis, and right finger extensor and iliopsoas weakness. 4. The CT scan of the brain without contrast is benign. 5. The MRI of the brain done on 12/08/17 revealed no acute pathology but did reveal periventricular and supratentorial white matter T2 hyperintensity without mass effect, related to sequela of chronic microvascular ischemic changes. 6. Laboratory data are relatively benign except for an elevated blood sugar and findings compatible with mild urinary tract infection. She is also folic acid deficient. 7. The patient's history and neurological examination are most compatible with a toxic encephalopathy most probably related to the urinary tract infection with a superimposed underlying progressive cognitive decline, which may be of a primary degenerative nature. It is unclear as to how much the folic acid deficiency could be contributing. Recommendations 1. Continue present management. 2. Her urinary tract infection should be treated appropriately. 3. Folic acid 1 mg daily. 4. If it is felt that her memory disturbance is definitely a dementia she should be started on Aricept and then Namenda should be added to her regimen. Emiliano Haque M.D., M.S.[facility]. EMILIANO HAQUE Dec 10, 2017 14:29
[2017-12-10 16:00] VITALS: BP 118/68
--- NOTE | 2017-12-10 16:35 | Internal Med Progress Note ---
Subjective Date of Service: Dec 10, 2017 Physician Name Javed Bates Attending Physician Lavell Espinoza MD Current Medications Medications (Trade) Dose Ordered Sig/Tevin Route PRN Reason Start Time Stop Time Status Last Admin Dose Admin Acetaminophen (Tylenol) 650 mg Q4H PRN ORAL T>100.5 12/09/17 15:00 01/06/18 14:59 Al Hydroxide/Mg Hydroxide (Mylanta II) 30 ml Q6H PRN ORAL dyspepsia 12/09/17 15:00 01/06/18 14:59 Albuterol/ Ipratropium (Albuterol/ Ipratropium) 3 ml Q4H PRN HHN Shortness of Breath 12/09/17 14:00 12/14/17 13:59 Amlodipine Besylate (Norvasc) 5 mg DAILY ORAL 12/10/17 09:00 01/08/18 08:59 12/10/17 08:11 Dextrose (Dextrose 50%) 25 ml STAT PRN IV Hypoglycemia 12/10/17 14:00 01/07/18 13:59 Dextrose (Dextrose 50%) 50 ml STAT PRN IV Hypoglycemia 12/10/17 14:00 01/07/18 13:59 Duloxetine HCl (Cymbalta) 30 mg DAILY ORAL 12/10/17 09:00 01/07/18 08:59 12/10/17 08:10 Folic Acid (Folate) 1 mg DAILY ORAL 12/10/17 09:00 01/09/18 08:59 12/10/17 08:10 Heparin Sodium (Porcine) (Heparin 5000 units/ml) 5,000 units EVERY 12 HOURS SUBQ 12/09/17 21:00 01/07/18 08:59 12/10/17 08:12 Lorazepam (Ativan 2mg/ml 1ml) 0.5 mg Q4H PRN IV For Anxiety 12/09/17 14:30 12/14/17 14:29 12/09/17 18:31 Morphine Sulfate (Morphine Sulfate) 1 mg Q4H PRN IVP Severe Pain (Pain Scale 7-10) 12/09/17 17:00 12/16/17 16:59 Nitroglycerin (Ntg) 0.4 mg Q5M X 3 DOSES PRN SL Prn Chest Pain 12/09/17 14:15 01/06/18 21:59 Ondansetron HCl (Zofran) 4 mg Q6H PRN IVP Nausea & Vomiting 12/09/17 14:00 01/06/18 13:59 Polyethylene Glycol (Miralax) 17 gm HSPRN PRN ORAL Constipation 12/09/17 21:00 01/06/18 20:59 Risperidone (RisperDAL) 0.25 mg QHS ORAL 12/09/17 20:45 01/08/18 20:44 12/09/17 22:02 Temazepam (Restoril) 15 mg HSPRN PRN ORAL Insomnia 12/09/17 21:00 12/14/17 20:59 Allergies: Coded Allergies: No Known Allergies (Unverified , 12/07/17) ROS Limited/Unobtainable: No Constitutional: Reports: no symptoms HEENT: Reports: no symptoms Cardiovascular: Reports: no symptoms Respiratory: Reports: no symptoms Gastrointestinal/Abdominal: Reports: no symptoms Genitourinary: Reports: no symptoms Neurologic/Psychiatric: Reports: no symptoms Subjective 72 YO F admitted with altered mental status. Cover for Int Med-Dr Espinoza Objective Last Vital Signs Date Time Temp Pulse Resp B/P (MAP) Pulse Ox O2 Delivery O2 Flow Rate FiO2 12/10/17 08:11 87 135/75 12/10/17 08:00 97.7 18 97 97.7 12/10/17 04:23 Room Air 12/09/17 19:10 21 12/08/17 19:15 2.0 Laboratory Tests Test 12/10/17 05:20 White Blood Count 6.1 K/UL (4.8-10.8) Red Blood Count 4.01 M/UL (4.20-5.40) L Hemoglobin 11.5 G/DL (12.0-16.0) L Hematocrit 34.7 % (37.0-47.0) L Mean Corpuscular Volume 87 FL (80-99) Mean Corpuscular Hemoglobin 28.7 PG (27.0-31.0) Mean Corpuscular Hemoglobin Concent 33.2 G/DL (32.0-36.0) Red Cell Distribution Width 12.0 % (11.6-14.8) Platelet Count 177 K/UL (150-450) Mean Platelet Volume 9.7 FL (6.5-10.1) Neutrophils (%) (Auto) 42.2 % (45.0-75.0) L Lymphocytes (%) (Auto) 46.4 % (20.0-45.0) H Monocytes (%) (Auto) 9.3 % (1.0-10.0) Eosinophils (%) (Auto) 1.1 % (0.0-3.0) Basophils (%) (Auto) 1.0 % (0.0-2.0) Sodium Level 137 MMOL/L (136-145) Potassium Level 4.1 MMOL/L (3.5-5.1) Chloride Level 104 MMOL/L (98-107) Carbon Dioxide Level 29 MMOL/L (21-32) Anion Gap 4 mmol/L (5-15) L Blood Urea Nitrogen 12 mg/dL (7-18) Creatinine 0.7 MG/DL (0.55-1.30) Estimat Glomerular Filtration Rate mL/min (>60) Glucose Level 91 MG/DL (74-106) Calcium Level 9.1 MG/DL (8.5-10.1) Phosphorus Level 3.0 MG/DL (2.5-4.9) Magnesium Level 1.7 MG/DL (1.8-2.4) L Total Bilirubin 0.3 MG/DL (0.2-1.0) Aspartate Amino Transf (AST/SGOT) 25 U/L (15-37) Alanine Aminotransferase (ALT/SGPT) 31 U/L (12-78) Alkaline Phosphatase 75 U/L (46-116) Total Protein 6.8 G/DL (6.4-8.2) Albumin 3.1 G/DL (3.4-5.0) L Globulin 3.7 g/dL Albumin/Globulin Ratio 0.8 (1.0-2.7) L Intake and Output 12/09/17 12/10/17 19:00 07:00 Intake Total 356 ml Balance 356 ml Intake Oral 356 ml # Voids 1 Objective General Appearance: WD/WN, no apparent distress, alert EENT: PERRL/EOMI, normal ENT inspection Neck: non-tender, normal alignment, supple Cardiovascular: normal peripheral pulses, normal rate, regular rhythm, no gallop/murmur, no JVD Respiratory/Chest: chest wall non-tender, lungs clear, normal breath sounds, no respiratory distress, no accessory muscle use Abdomen: normal bowel sounds, non tender, soft, no organomegaly, no mass Extremities: normal range of motion 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 Status: progressing JAVED BATES Dec 10, 2017 16:35
--- NOTE | 2017-12-10 17:04 | Cardiology Progress Note ---
Assessment/Plan Problem List: (1) UTI (urinary tract infection) (2) History of hypertension (3) Acute encephalopathy Status: stable, progressing Status Narrative Mrs. Oropeza is stable from a cardiac standpoint. BP is controlled. There are no anginal or CHF symptoms. She was transferred from telemetry yesterday, as rhythm was stable - no AF She has bacteriuria and pyuria. Assessment/Plan Continue amlodipine for HTN. Urine culture. Rx of UTI per primary team. Neurology evaluation for altered MS in progress, possible toxic metabolic encephalopathy. Subjective ROS Limited/Unobtainable: No Subjective Cardiology for Dr. Amezcua Mrs. Oropeza has no c/o. She appears w/ improvement in mental status - oriented to person, hospital, able to give details of med hx, previous work. Objective Last 24 Hour Vital Signs Date Time Temp Pulse Resp B/P (MAP) Pulse Ox O2 Delivery O2 Flow Rate FiO2 12/10/17 08:11 87 135/75 12/10/17 08:00 97.7 87 18 135/75 97 97.7 12/10/17 04:23 Room Air 12/10/17 03:16 97.7 86 19 140/78 98 Room Air 97.7 12/10/17 00:15 97.5 82 22 139/86 96 Room Air 97.5 12/10/17 00:00 Room Air 12/09/17 20:00 Room Air 12/09/17 20:00 97.7 89 20 144/83 96 97.7 12/09/17 19:10 Room Air 21 12/09/17 19:10 97 Room Air 21 12/09/17 19:10 76 20 Room Air 21 General Appearance: WD/WN, no apparent distress, alert EENT: PERRL/EOMI Neck: supple, no JVD Rhythm: NSR Cardiovascular: normal rate, regular rhythm, no gallop/murmur Respiratory/Chest: lungs clear Abdomen: normal bowel sounds, non tender, soft Extremities: no swelling Intake and Output 12/09/17 12/10/17 19:00 07:00 Intake Total 356 ml Balance 356 ml Intake Oral 356 ml # Voids 1 Laboratory Tests Test 12/10/17 05:20 White Blood Count 6.1 K/UL (4.8-10.8) Red Blood Count 4.01 M/UL (4.20-5.40) L Hemoglobin 11.5 G/DL (12.0-16.0) L Hematocrit 34.7 % (37.0-47.0) L Mean Corpuscular Volume 87 FL (80-99) Mean Corpuscular Hemoglobin 28.7 PG (27.0-31.0) Mean Corpuscular Hemoglobin Concent 33.2 G/DL (32.0-36.0) Red Cell Distribution Width 12.0 % (11.6-14.8) Platelet Count 177 K/UL (150-450) Mean Platelet Volume 9.7 FL (6.5-10.1) Neutrophils (%) (Auto) 42.2 % (45.0-75.0) L Lymphocytes (%) (Auto) 46.4 % (20.0-45.0) H Monocytes (%) (Auto) 9.3 % (1.0-10.0) Eosinophils (%) (Auto) 1.1 % (0.0-3.0) Basophils (%) (Auto) 1.0 % (0.0-2.0) Sodium Level 137 MMOL/L (136-145) Potassium Level 4.1 MMOL/L (3.5-5.1) Chloride Level 104 MMOL/L (98-107) Carbon Dioxide Level 29 MMOL/L (21-32) Anion Gap 4 mmol/L (5-15) L Blood Urea Nitrogen 12 mg/dL (7-18) Creatinine 0.7 MG/DL (0.55-1.30) Estimat Glomerular Filtration Rate mL/min (>60) Glucose Level 91 MG/DL (74-106) Calcium Level 9.1 MG/DL (8.5-10.1) Phosphorus Level 3.0 MG/DL (2.5-4.9) Magnesium Level 1.7 MG/DL (1.8-2.4) L Total Bilirubin 0.3 MG/DL (0.2-1.0) Aspartate Amino Transf (AST/SGOT) 25 U/L (15-37) Alanine Aminotransferase (ALT/SGPT) 31 U/L (12-78) Alkaline Phosphatase 75 U/L (46-116) Total Protein 6.8 G/DL (6.4-8.2) Albumin 3.1 G/DL (3.4-5.0) L Globulin 3.7 g/dL Albumin/Globulin Ratio 0.8 (1.0-2.7) LOLIS NUNEZ Dec 10, 2017 17:04
[2017-12-10 20:05] VITALS: BP 128/70
[2017-12-11 00:06] VITALS: BP 131/76
[2017-12-11 04:09] VITALS: BP 124/68
[2017-12-11 06:33] LABS: BASOPHILS % (AUTO) 1.4 % (0.0-2.0); EOSINOPHILS % (AUTO) 1.4 % (0.0-3.0); HEMATOCRIT 37.1 % (37.0-47.0); HEMOGLOBIN 12.3 G/DL (12.0-16.0); LYMPHOCYTES % (AUTO) 46.3 % (20.0-45.0); MEAN CORPUSCULAR VOLUME 87 FL (80-99); MONOCYTES % (AUTO) 9.9 % (1.0-10.0); NEUTROPHILS % (AUTO) 41.1 % (45.0-75.0); PLATELET COUNT 168 K/UL (150-450); RED BLOOD COUNT 4.27 M/UL (4.20-5.40); RED CELL DISTRIBUTION WIDTH 12.3 % (11.6-14.8); WHITE BLOOD COUNT 4.9 K/UL (4.8-10.8)
[2017-12-11 06:41] LABS: ALANINE AMINOTRANSFERASE 37 U/L (12-78); ALBUMIN 3.1 G/DL (3.4-5.0); ALBUMIN/GLOBULIN RATIO 0.8 (1.0-2.7); ALKALINE PHOSPHATASE 85 U/L (46-116); ANION GAP 3 mmol/L (5-15); ASPARTATE AMINO TRANSFERASE 25 U/L (15-37); BILIRUBIN,TOTAL 0.3 MG/DL (0.2-1.0); BLOOD UREA NITROGEN 13 mg/dL (7-18); CALCIUM 9.3 MG/DL (8.5-10.1); CARBON DIOXIDE 29 MMOL/L (21-32); CHLORIDE 105 MMOL/L (98-107); CREATININE 0.7 MG/DL (0.55-1.30); PHOSPHORUS 3.3 MG/DL (2.5-4.9); POTASSIUM 3.8 MMOL/L (3.5-5.1); SODIUM 137 MMOL/L (136-145)
[2017-12-11 08:00] VITALS: BP 119/67
[2017-12-11] MEDS: DULoxetine 30mg cap ORAL SCH (08:43)
[2017-12-11] MEDS: Heparin 5000 units/ml inj SUBQ SCH (08:44)
[2017-12-11 12:00] VITALS: BP 117/74
--- NOTE | 2017-12-11 12:10 | Consultation ---
History of Present Illness General Date patient seen: Dec 08, 2017 Chief Complaint: Altered Level of Consciousness Present Illness HPI 72-year-old female with past medical history significant for hypertension, dyslipidemia, and who has presented to the hospital accompanied with the EMS after she was noted to be more confused and disoriented. Allergies: Coded Allergies: No Known Allergies (Unverified , 12/07/17) Medication History Scheduled Amlodipine Besylate* (Amlodipine Besylate*), 10 MG ORAL DAILY, (Reported) Aspirin* (Aspir 81*), 81 MG ORAL DAILY, (Reported) Atorvastatin Calcium* (Lipitor*), 20 MG ORAL BEDTIME, (Reported) Baclofen* (Baclofen*), 10 MG ORAL THREE TIMES A DAY, (Reported) Benazepril Hcl* (Benazepril Hcl*), 20 MG ORAL EVERY 12 HOURS, (Reported) Duloxetine Hcl* (Cymbalta*), 30 MG ORAL DAILY, (Reported) Metoprolol Tartrate* (Metoprolol Tartrate*), 50 MG ORAL EVERY 12 HOURS, ( Reported) Patient History Limited by: medical condition History Provided By: Patient, Medical Record Healthcare decision maker Resuscitation status Full Code Advanced Directive on File No Past Medical/Surgical History Past Medical/Surgical History: (1) History of hypertension (2) Polypharmacy (3) Acute encephalopathy (4) UTI (urinary tract infection) (5) Hypercholesteremia (6) Altered mental status (7) HTN (hypertension) (8) Hemiparesis, right (9) Lumbar stenosis Review of Systems Psychiatric: Reports: prior hx, anxiety, depressed feelings Physical Exam General Appearance: no apparent distress, alert, agitated Last 24 Hour Vital Signs Date Time Temp Pulse Resp B/P (MAP) Pulse Ox O2 Delivery O2 Flow Rate FiO2 12/11/17 08:43 77 119/67 12/11/17 08:29 Room Air 21 12/11/17 08:28 98 Room Air 21 12/11/17 08:27 82 16 Room Air 21 12/11/17 08:00 97.7 77 18 119/67 99 Room Air 97.7 12/11/17 04:22 Room Air 12/11/17 04:09 97.9 82 20 124/68 97 97.9 12/11/17 00:33 Room Air 12/11/17 00:06 98.1 75 19 131/76 98 98.1 12/10/17 20:05 98.2 81 19 128/70 98 98.2 12/10/17 20:00 Room Air 12/10/17 19:51 96 Room Air 21 12/10/17 19:51 Room Air 21 12/10/17 19:51 81 18 Room Air 21 12/10/17 16:00 97.9 76 20 118/68 96 Room Air 97.9 Intake and Output 12/10/17 12/11/17 19:00 07:00 Intake Total 840 ml 360 ml Balance 840 ml 360 ml Intake Oral 840 ml 360 ml # Voids 3 3 Laboratory Tests Test 12/11/17 05:35 White Blood Count 4.9 K/UL (4.8-10.8) Red Blood Count 4.27 M/UL (4.20-5.40) Hemoglobin 12.3 G/DL (12.0-16.0) Hematocrit 37.1 % (37.0-47.0) Mean Corpuscular Volume 87 FL (80-99) Mean Corpuscular Hemoglobin 28.8 PG (27.0-31.0) Mean Corpuscular Hemoglobin Concent 33.1 G/DL (32.0-36.0) Red Cell Distribution Width 12.3 % (11.6-14.8) Platelet Count 168 K/UL (150-450) Mean Platelet Volume 9.3 FL (6.5-10.1) Neutrophils (%) (Auto) 41.1 % (45.0-75.0) L Lymphocytes (%) (Auto) 46.3 % (20.0-45.0) H Monocytes (%) (Auto) 9.9 % (1.0-10.0) Eosinophils (%) (Auto) 1.4 % (0.0-3.0) Basophils (%) (Auto) 1.4 % (0.0-2.0) Sodium Level 137 MMOL/L (136-145) Potassium Level 3.8 MMOL/L (3.5-5.1) Chloride Level 105 MMOL/L (98-107) Carbon Dioxide Level 29 MMOL/L (21-32) Anion Gap 3 mmol/L (5-15) L Blood Urea Nitrogen 13 mg/dL (7-18) Creatinine 0.7 MG/DL (0.55-1.30) Estimat Glomerular Filtration Rate mL/min (>60) Glucose Level 90 MG/DL (74-106) Calcium Level 9.3 MG/DL (8.5-10.1) Phosphorus Level 3.3 MG/DL (2.5-4.9) Magnesium Level 1.8 MG/DL (1.8-2.4) Total Bilirubin 0.3 MG/DL (0.2-1.0) Aspartate Amino Transf (AST/SGOT) 25 U/L (15-37) Alanine Aminotransferase (ALT/SGPT) 37 U/L (12-78) Alkaline Phosphatase 85 U/L (46-116) Total Protein 7.1 G/DL (6.4-8.2) Albumin 3.1 G/DL (3.4-5.0) L Globulin 4.0 g/dL Albumin/Globulin Ratio 0.8 (1.0-2.7) L Height (Feet): 5 Height (Inches): 6.00 Weight (Pounds): 174 Medications Current Medications Medications (Trade) Dose Ordered Sig/Tevin Route PRN Reason Start Time Stop Time Status Last Admin Dose Admin Acetaminophen (Tylenol) 650 mg Q4H PRN ORAL T>100.5 12/09/17 15:00 01/06/18 14:59 Al Hydroxide/Mg Hydroxide (Mylanta II) 30 ml Q6H PRN ORAL dyspepsia 12/09/17 15:00 01/06/18 14:59 Albuterol/ Ipratropium (Albuterol/ Ipratropium) 3 ml Q4H PRN HHN Shortness of Breath 12/09/17 14:00 12/14/17 13:59 Amlodipine Besylate (Norvasc) 5 mg DAILY ORAL 12/10/17 09:00 01/08/18 08:59 12/11/17 08:43 Dextrose (Dextrose 50%) 25 ml STAT PRN IV Hypoglycemia 12/10/17 14:00 01/07/18 13:59 Dextrose (Dextrose 50%) 50 ml STAT PRN IV Hypoglycemia 12/10/17 14:00 01/07/18 13:59 Duloxetine HCl (Cymbalta) 30 mg DAILY ORAL 12/10/17 09:00 01/07/18 08:59 12/11/17 08:43 Folic Acid (Folate) 1 mg DAILY ORAL 12/10/17 09:00 01/09/18 08:59 12/11/17 08:43 Heparin Sodium (Porcine) (Heparin 5000 units/ml) 5,000 units EVERY 12 HOURS SUBQ 12/09/17 21:00 01/07/18 08:59 12/11/17 08:44 Lorazepam (Ativan 2mg/ml 1ml) 0.5 mg Q4H PRN IV For Anxiety 12/09/17 14:30 12/14/17 14:29 12/09/17 18:31 Morphine Sulfate (Morphine Sulfate) 1 mg Q4H PRN IVP Severe Pain (Pain Scale 7-10) 12/09/17 17:00 12/16/17 16:59 Nitroglycerin (Ntg) 0.4 mg Q5M X 3 DOSES PRN SL Prn Chest Pain 12/09/17 14:15 01/06/18 21:59 Ondansetron HCl (Zofran) 4 mg Q6H PRN IVP Nausea & Vomiting 12/09/17 14:00 01/06/18 13:59 Polyethylene Glycol (Miralax) 17 gm HSPRN PRN ORAL Constipation 12/09/17 21:00 01/06/18 20:59 Risperidone (RisperDAL) 0.25 mg QHS ORAL 12/09/17 20:45 01/08/18 20:44 12/10/17 20:17 Temazepam (Restoril) 15 mg HSPRN PRN ORAL Insomnia 12/09/17 21:00 12/14/17 20:59 Assessment/Plan Assessment/Plan encephalopathy agitation mdd cymbalta samina moncada/Rylan Barbosa M.D. Dec 11, 2017 12:10
[2017-12-11] MEDS ORDERED: OLANZapine 2.5mg tab ORAL PRN (12:15)
--- NOTE | 2017-12-11 12:20 | Internal Med Progress Note ---
Subjective Date of Service: Dec 11, 2017 Physician Name Javed Bates Attending Physician Lavell Espinoza MD Current Medications Medications (Trade) Dose Ordered Sig/Tevin Route PRN Reason Start Time Stop Time Status Last Admin Dose Admin Acetaminophen (Tylenol) 650 mg Q4H PRN ORAL T>100.5 12/09/17 15:00 01/06/18 14:59 Al Hydroxide/Mg Hydroxide (Mylanta II) 30 ml Q6H PRN ORAL dyspepsia 12/09/17 15:00 01/06/18 14:59 Albuterol/ Ipratropium (Albuterol/ Ipratropium) 3 ml Q4H PRN HHN Shortness of Breath 12/09/17 14:00 12/14/17 13:59 Amlodipine Besylate (Norvasc) 5 mg DAILY ORAL 12/10/17 09:00 01/08/18 08:59 12/11/17 08:43 Dextrose (Dextrose 50%) 25 ml STAT PRN IV Hypoglycemia 12/10/17 14:00 01/07/18 13:59 Dextrose (Dextrose 50%) 50 ml STAT PRN IV Hypoglycemia 12/10/17 14:00 01/07/18 13:59 Duloxetine HCl (Cymbalta) 30 mg DAILY ORAL 12/10/17 09:00 01/07/18 08:59 12/11/17 08:43 Folic Acid (Folate) 1 mg DAILY ORAL 12/10/17 09:00 01/09/18 08:59 12/11/17 08:43 Heparin Sodium (Porcine) (Heparin 5000 units/ml) 5,000 units EVERY 12 HOURS SUBQ 12/09/17 21:00 01/07/18 08:59 12/11/17 08:44 Morphine Sulfate (Morphine Sulfate) 1 mg Q4H PRN IVP Severe Pain (Pain Scale 7-10) 12/09/17 17:00 12/16/17 16:59 Nitroglycerin (Ntg) 0.4 mg Q5M X 3 DOSES PRN SL Prn Chest Pain 12/09/17 14:15 01/06/18 21:59 Olanzapine (ZyPREXA) 2.5 mg EVERY 6 HOURS PRN ORAL agitation 12/11/17 12:15 01/10/18 12:14 Olanzapine (ZyPREXA) 5 mg BEDTIME ORAL 12/11/17 21:00 5/16/18 20:59 Ondansetron HCl (Zofran) 4 mg Q6H PRN IVP Nausea & Vomiting 12/09/17 14:00 01/06/18 13:59 Polyethylene Glycol (Miralax) 17 gm HSPRN PRN ORAL Constipation 12/09/17 21:00 01/06/18 20:59 Temazepam (Restoril) 15 mg HSPRN PRN ORAL Insomnia 12/09/17 21:00 12/14/17 20:59 Allergies: Coded Allergies: No Known Allergies (Unverified , 12/07/17) ROS Limited/Unobtainable: No Constitutional: Reports: no symptoms HEENT: Reports: no symptoms Cardiovascular: Reports: no symptoms Respiratory: Reports: no symptoms Gastrointestinal/Abdominal: Reports: no symptoms Genitourinary: Reports: no symptoms Neurologic/Psychiatric: Reports: no symptoms Subjective 72 YO F admitted with altered mental status. Cover for Int Med-Dr Espinoza. Still confused Objective Last Vital Signs Date Time Temp Pulse Resp B/P (MAP) Pulse Ox O2 Delivery O2 Flow Rate FiO2 12/11/17 08:43 77 119/67 12/11/17 08:29 Room Air 21 12/11/17 08:28 98 12/11/17 08:27 16 12/11/17 08:00 97.7 97.7 12/08/17 19:15 2.0 Laboratory Tests Test 12/11/17 05:35 White Blood Count 4.9 K/UL (4.8-10.8) Red Blood Count 4.27 M/UL (4.20-5.40) Hemoglobin 12.3 G/DL (12.0-16.0) Hematocrit 37.1 % (37.0-47.0) Mean Corpuscular Volume 87 FL (80-99) Mean Corpuscular Hemoglobin 28.8 PG (27.0-31.0) Mean Corpuscular Hemoglobin Concent 33.1 G/DL (32.0-36.0) Red Cell Distribution Width 12.3 % (11.6-14.8) Platelet Count 168 K/UL (150-450) Mean Platelet Volume 9.3 FL (6.5-10.1) Neutrophils (%) (Auto) 41.1 % (45.0-75.0) L Lymphocytes (%) (Auto) 46.3 % (20.0-45.0) H Monocytes (%) (Auto) 9.9 % (1.0-10.0) Eosinophils (%) (Auto) 1.4 % (0.0-3.0) Basophils (%) (Auto) 1.4 % (0.0-2.0) Sodium Level 137 MMOL/L (136-145) Potassium Level 3.8 MMOL/L (3.5-5.1) Chloride Level 105 MMOL/L (98-107) Carbon Dioxide Level 29 MMOL/L (21-32) Anion Gap 3 mmol/L (5-15) L Blood Urea Nitrogen 13 mg/dL (7-18) Creatinine 0.7 MG/DL (0.55-1.30) Estimat Glomerular Filtration Rate mL/min (>60) Glucose Level 90 MG/DL (74-106) Calcium Level 9.3 MG/DL (8.5-10.1) Phosphorus Level 3.3 MG/DL (2.5-4.9) Magnesium Level 1.8 MG/DL (1.8-2.4) Total Bilirubin 0.3 MG/DL (0.2-1.0) Aspartate Amino Transf (AST/SGOT) 25 U/L (15-37) Alanine Aminotransferase (ALT/SGPT) 37 U/L (12-78) Alkaline Phosphatase 85 U/L (46-116) Total Protein 7.1 G/DL (6.4-8.2) Albumin 3.1 G/DL (3.4-5.0) L Globulin 4.0 g/dL Albumin/Globulin Ratio 0.8 (1.0-2.7) L Intake and Output 12/10/17 12/11/17 19:00 07:00 Intake Total 840 ml 360 ml Balance 840 ml 360 ml Intake Oral 840 ml 360 ml # Voids 3 3 Objective General Appearance: WD/WN, no apparent distress, alert EENT: PERRL/EOMI, normal ENT inspection Neck: non-tender, normal alignment, supple Cardiovascular: normal peripheral pulses, normal rate, regular rhythm, no gallop/murmur, no JVD Respiratory/Chest: chest wall non-tender, lungs clear, normal breath sounds, no respiratory distress, no accessory muscle use Abdomen: normal bowel sounds, non tender, soft, no organomegaly, no mass Extremities: normal range of motion Neurologic: chief pilot II-XII grossly normal, no motor/sensory deficits Skin: normal pigmentation, warm/dry Assessment/Plan Problem List: (1) Altered mental status Assessment & Plan: MRI brain=WNL (2) HTN (hypertension) Assessment & Plan: continue norvasc (3) Hypercholesteremia (4) Lumbar stenosis (5) Hemiparesis, right Assessment & Plan: See neuro note. Assessment/Plan [facility] JAVED BATES Dec 11, 2017 12:20
[2017-12-11 16:04] VITALS: BP 122/74
--- NOTE | 2017-12-11 20:43 | Pulmonology Progress Note ---
Assessment/Plan Problems: (1) Acute encephalopathy (2) Polypharmacy (3) History of hypertension Assessment/Plan MRI: Periventricular and supratentorial white matter T2 hyperintensity without mass effect, commonly related to sequela of chronic microvascular ischemic changes Cardio and neuro note appreciated symptomatic treatment psych and neuro evaluation med/surg pt/ot doing better, dc home with close outpatient f/u Subjective ROS Limited/Unobtainable: No Constitutional: Reports: no symptoms HEENT: Repors: no symptoms Respiratory: Reports: no symptoms Cardiovascular: Reports: no symptoms Allergies: Coded Allergies: No Known Allergies (Unverified , 12/07/17) Objective Last 24 Hour Vital Signs Date Time Temp Pulse Resp B/P (MAP) Pulse Ox O2 Delivery O2 Flow Rate FiO2 12/11/17 16:04 97.7 82 18 122/74 97 Room Air 97.7 12/11/17 12:00 97.5 89 21 117/74 99 Room Air 97.5 12/11/17 08:43 77 119/67 12/11/17 08:29 Room Air 21 12/11/17 08:28 98 Room Air 21 12/11/17 08:27 82 16 Room Air 21 12/11/17 08:00 97.7 77 18 119/67 99 Room Air 97.7 12/11/17 04:22 Room Air 12/11/17 04:09 97.9 82 20 124/68 97 97.9 12/11/17 00:33 Room Air 12/11/17 00:06 98.1 75 19 131/76 98 98.1 Intake and Output 12/10/17 12/11/17 19:00 07:00 Intake Total 840 ml 360 ml Balance 840 ml 360 ml Intake Oral 840 ml 360 ml # Voids 3 3 Objective General Appearance: WD/WN HEENT: normocephalic, atraumatic Respiratory/Chest: chest wall non-tender, lungs clear Cardiovascular: normal peripheral pulses, normal rate, regular rhythm Abdomen: normal bowel sounds, soft, non tender Genitourinary: normal external genitalia Extremities: no cyanosis Skin: no rash Laboratory Tests 12/11/17 05:35: White Blood Count 4.9, Red Blood Count 4.27, Hemoglobin 12.3, Hematocrit 37.1, Mean Corpuscular Volume 87, Mean Corpuscular Hemoglobin 28.8, Mean Corpuscular Hemoglobin Concent 33.1, Red Cell Distribution Width 12.3, Platelet Count 168, Mean Platelet Volume 9.3, Neutrophils (%) (Auto) 41.1L, Lymphocytes (%) (Auto) 46.3H, Monocytes (%) (Auto) 9.9, Eosinophils (%) (Auto) 1.4, Basophils (%) (Auto ) 1.4, Sodium Level 137, Potassium Level 3.8, Chloride Level 105, Carbon Dioxide Level 29, Anion Gap 3L, Blood Urea Nitrogen 13, Creatinine 0.7, Estimat Glomerular Filtration Rate , Glucose Level 90, Calcium Level 9.3, Phosphorus Level 3.3, Magnesium Level 1.8, Total Bilirubin 0.3, Aspartate Amino Transf (AST /SGOT) 25, Alanine Aminotransferase (ALT/SGPT) 37, Alkaline Phosphatase 85, Total Protein 7.1, Albumin 3.1L, Globulin 4.0, Albumin/Globulin Ratio 0.8L Jarod Duarte MD Dec 11, 2017 20:43
[2017-12-11] MEDS ORDERED: OLANZapine 2.5mg tab ORAL SCH (21:00)
--- NOTE | 2017-12-11 23:54 | General Progress Note ---
Assessment/Plan Status Narrative encephalopathy agitation mdd katelynalta provided ro/st Subjective Date patient seen: Dec 10, 2017 Neurologic/Psychiatric: Reports: anxiety, depressed, emotional problems Allergies: Coded Allergies: No Known Allergies (Unverified , 12/07/17) Objective Last 24 Hour Vital Signs Date Time Temp Pulse Resp B/P (MAP) Pulse Ox O2 Delivery O2 Flow Rate FiO2 12/11/17 16:04 97.7 82 18 122/74 97 Room Air 97.7 12/11/17 12:00 97.5 89 21 117/74 99 Room Air 97.5 12/11/17 08:43 77 119/67 12/11/17 08:29 Room Air 21 12/11/17 08:28 98 Room Air 21 12/11/17 08:27 82 16 Room Air 21 12/11/17 08:00 97.7 77 18 119/67 99 Room Air 97.7 12/11/17 04:22 Room Air 12/11/17 04:09 97.9 82 20 124/68 97 97.9 12/11/17 00:33 Room Air 12/11/17 00:06 98.1 75 19 131/76 98 98.1 Intake and Output 12/10/17 12/11/17 19:00 07:00 Intake Total 840 ml 360 ml Balance 840 ml 360 ml Intake Oral 840 ml 360 ml # Voids 3 3 Laboratory Tests 12/11/17 05:35: White Blood Count 4.9, Red Blood Count 4.27, Hemoglobin 12.3, Hematocrit 37.1, Mean Corpuscular Volume 87, Mean Corpuscular Hemoglobin 28.8, Mean Corpuscular Hemoglobin Concent 33.1, Red Cell Distribution Width 12.3, Platelet Count 168, Mean Platelet Volume 9.3, Neutrophils (%) (Auto) 41.1L, Lymphocytes (%) (Auto) 46.3H, Monocytes (%) (Auto) 9.9, Eosinophils (%) (Auto) 1.4, Basophils (%) (Auto ) 1.4, Sodium Level 137, Potassium Level 3.8, Chloride Level 105, Carbon Dioxide Level 29, Anion Gap 3L, Blood Urea Nitrogen 13, Creatinine 0.7, Estimat Glomerular Filtration Rate , Glucose Level 90, Calcium Level 9.3, Phosphorus Level 3.3, Magnesium Level 1.8, Total Bilirubin 0.3, Aspartate Amino Transf (AST /SGOT) 25, Alanine Aminotransferase (ALT/SGPT) 37, Alkaline Phosphatase 85, Total Protein 7.1, Albumin 3.1L, Globulin 4.0, Albumin/Globulin Ratio 0.8L Height (Feet): 5 Height (Inches): 6.00 Weight (Pounds): 174 General Appearance: no apparent distress, alert, agitated Rylan Noonan M.D. Dec 11, 2017 23:54
--- NOTE | 2017-12-11 23:54 | Psych Consult Progress Note ---
Psych Consult Progress Note Consult 12/09/17 Vital Signs Last 24 Hour Vital Signs Date Time Temp Pulse Resp B/P (MAP) Pulse Ox O2 Delivery O2 Flow Rate FiO2 12/11/17 16:04 97.7 82 18 122/74 97 Room Air 97.7 12/11/17 12:00 97.5 89 21 117/74 99 Room Air 97.5 12/11/17 08:43 77 119/67 12/11/17 08:29 Room Air 21 12/11/17 08:28 98 Room Air 21 12/11/17 08:27 82 16 Room Air 21 12/11/17 08:00 97.7 77 18 119/67 99 Room Air 97.7 12/11/17 04:22 Room Air 12/11/17 04:09 97.9 82 20 124/68 97 97.9 12/11/17 00:33 Room Air 12/11/17 00:06 98.1 75 19 131/76 98 98.1 Labs Laboratory Tests Test 12/11/17 05:35 White Blood Count 4.9 K/UL (4.8-10.8) Red Blood Count 4.27 M/UL (4.20-5.40) Hemoglobin 12.3 G/DL (12.0-16.0) Hematocrit 37.1 % (37.0-47.0) Mean Corpuscular Volume 87 FL (80-99) Mean Corpuscular Hemoglobin 28.8 PG (27.0-31.0) Mean Corpuscular Hemoglobin Concent 33.1 G/DL (32.0-36.0) Red Cell Distribution Width 12.3 % (11.6-14.8) Platelet Count 168 K/UL (150-450) Mean Platelet Volume 9.3 FL (6.5-10.1) Neutrophils (%) (Auto) 41.1 % (45.0-75.0) L Lymphocytes (%) (Auto) 46.3 % (20.0-45.0) H Monocytes (%) (Auto) 9.9 % (1.0-10.0) Eosinophils (%) (Auto) 1.4 % (0.0-3.0) Basophils (%) (Auto) 1.4 % (0.0-2.0) Sodium Level 137 MMOL/L (136-145) Potassium Level 3.8 MMOL/L (3.5-5.1) Chloride Level 105 MMOL/L (98-107) Carbon Dioxide Level 29 MMOL/L (21-32) Anion Gap 3 mmol/L (5-15) L Blood Urea Nitrogen 13 mg/dL (7-18) Creatinine 0.7 MG/DL (0.55-1.30) Estimat Glomerular Filtration Rate mL/min (>60) Glucose Level 90 MG/DL (74-106) Calcium Level 9.3 MG/DL (8.5-10.1) Phosphorus Level 3.3 MG/DL (2.5-4.9) Magnesium Level 1.8 MG/DL (1.8-2.4) Total Bilirubin 0.3 MG/DL (0.2-1.0) Aspartate Amino Transf (AST/SGOT) 25 U/L (15-37) Alanine Aminotransferase (ALT/SGPT) 37 U/L (12-78) Alkaline Phosphatase 85 U/L (46-116) Total Protein 7.1 G/DL (6.4-8.2) Albumin 3.1 G/DL (3.4-5.0) L Globulin 4.0 g/dL Albumin/Globulin Ratio 0.8 (1.0-2.7) L Problems: (1) Acute encephalopathy (2) Altered mental status Assessment & Plan: encephalopathy agitation [facility] henry moncada/Rylan Barbosa M.D. Dec 11, 2017 23:54
--- NOTE | 2017-12-11 23:54 | General Progress Note ---
Assessment/Plan Assessment/Plan encephalopathy agitation mdd katelynalta provided ro/st Subjective Date patient seen: Dec 11, 2017 Neurologic/Psychiatric: Reports: anxiety, emotional problems Allergies: Coded Allergies: No Known Allergies (Unverified , 12/07/17) Objective Last 24 Hour Vital Signs Date Time Temp Pulse Resp B/P (MAP) Pulse Ox O2 Delivery O2 Flow Rate FiO2 12/11/17 16:04 97.7 82 18 122/74 97 Room Air 97.7 12/11/17 12:00 97.5 89 21 117/74 99 Room Air 97.5 12/11/17 08:43 77 119/67 12/11/17 08:29 Room Air 21 12/11/17 08:28 98 Room Air 21 12/11/17 08:27 82 16 Room Air 21 12/11/17 08:00 97.7 77 18 119/67 99 Room Air 97.7 12/11/17 04:22 Room Air 12/11/17 04:09 97.9 82 20 124/68 97 97.9 12/11/17 00:33 Room Air 12/11/17 00:06 98.1 75 19 131/76 98 98.1 Intake and Output 12/10/17 12/11/17 19:00 07:00 Intake Total 840 ml 360 ml Balance 840 ml 360 ml Intake Oral 840 ml 360 ml # Voids 3 3 Laboratory Tests 12/11/17 05:35: White Blood Count 4.9, Red Blood Count 4.27, Hemoglobin 12.3, Hematocrit 37.1, Mean Corpuscular Volume 87, Mean Corpuscular Hemoglobin 28.8, Mean Corpuscular Hemoglobin Concent 33.1, Red Cell Distribution Width 12.3, Platelet Count 168, Mean Platelet Volume 9.3, Neutrophils (%) (Auto) 41.1L, Lymphocytes (%) (Auto) 46.3H, Monocytes (%) (Auto) 9.9, Eosinophils (%) (Auto) 1.4, Basophils (%) (Auto ) 1.4, Sodium Level 137, Potassium Level 3.8, Chloride Level 105, Carbon Dioxide Level 29, Anion Gap 3L, Blood Urea Nitrogen 13, Creatinine 0.7, Estimat Glomerular Filtration Rate , Glucose Level 90, Calcium Level 9.3, Phosphorus Level 3.3, Magnesium Level 1.8, Total Bilirubin 0.3, Aspartate Amino Transf (AST /SGOT) 25, Alanine Aminotransferase (ALT/SGPT) 37, Alkaline Phosphatase 85, Total Protein 7.1, Albumin 3.1L, Globulin 4.0, Albumin/Globulin Ratio 0.8L Height (Feet): 5 Height (Inches): 6.00 Weight (Pounds): 174 General Appearance: no apparent distress, alert, confused, agitated Rylan Noonan M.D. Dec 11, 2017 23:54
--- NOTE | 2017-12-13 09:17 | Discharge Summary ---
Discharge Summary Hospital Course Date of Admission Dec 07, 2017 at 19:25 Date of Discharge Dec 11, 2017 at 17:05 Admitting Diagnosis GENERALIZED WEAKNESS, ALTERED MENTAL STATUS HPI HISTORY OF PRESENT ILLNESS: This is a 72-year-old female with past medical history significant for hypertension, dyslipidemia, and history of lumbar spine surgery due to the lumbar disc herniation, who has presented to the hospital accompanied with the EMS after she was noted to be more confused and disoriented. The patient was seen by the primary doctor and subsequently was advised to come to the emergency room for evaluation. Shortly after initial evaluation in the emergency room, the patient was noted to be more confused and disoriented and subsequently was admitted to the hospital. The patient had a CT scan of the head that was essentially unremarkable and the patient subsequently was admitted to the hospital with acute encephalopathy. PAST MEDICAL HISTORY/PAST SURGICAL HISTORY: As above. History of hypertension , dyslipidemia, as well as lumbar spine surgery due to the lumbar spine disc herniation. Consultations Neurology Consultation >> Ambrose Haque MD DIAGNOSTIC IMPRESSION: 1. Ms. Kristy Oropeza is a 72-year-old, right-handed, black lady, with a past history of hypertension for numerous years and memory problems for the last six months. She was at her doctor's office on 12/07/2017 and was noted to be significantly confused and disoriented and as a result of that was brought into the [facility] emergency room. 2. On neurological examination at this time, she is disoriented to date, month , and name of the hospital. She has significant problems with recent and remote memory, visuospatial function, higher cognitive function, and language. In addition, she also has a trace right VII central facial paresis, and right finger extensor and iliopsoas weakness. 3. The CT scan of the brain without contrast is benign. 4. Laboratory data are relatively benign except for an elevated blood sugar and findings compatible with mild urinary tract infection. 5. The patient's history and neurological examination are most compatible with a toxic encephalopathy most probably related to the urinary tract infection with a superimposed underlying progressive cognitive decline, which may be of a primary degenerative nature. However, other treatable causes should be excluded. Pulmonary Consultation >> Jarod Duarte MD Problems: (1) Acute encephalopathy (2) Polypharmacy (3) History of hypertension Procedures Procedure: CT Head no Contrast Indications: Sludge in mental status and head pain Impression: Chronic and age-related changes Negative for acute intracranial bleed or mass effect Procedure: MRI Brain no Contrast Indication: Altered mental status, rule out stroke IMPRESSION: No evidence of acute infarct. No acute intracranial hemorrhage, mass effect or midline shift. Periventricular and supratentorial white matter T2 hyperintensity without mass effect, a nonspecific finding most commonly related to sequela of chronic microvascular ischemic changes. EXAM: Two-dimensional and M-mode echocardiogram with Doppler and color Doppler. Normal left ventricular chamber size, systolic function and wall motion to extent visualized. Left ventricular ejection fraction estimated to be 60-65 %. No evidence of left ventricular hypertrophy . No evidence of pericardial pericardial effusion. All other cardiac chamber sizes are within normal limits. Focal aortic valve sclerosis with adequate cusp excursion. Mildly Thickened mitral valve leaflets with normal excursion. Midly Mitral annulus and aortic root calcification. Pulmonic valve not well visualized. Normal tricuspid valve structure. A color flow and spectral Doppler study was performed and revealed: No aortic regurgitation. Trace mitral regurgitation. Mitral diastolic velocities suggest reduced left ventricular relaxation c/w mild LV diastolic dysfunction (Grade I ). Mild tricuspid regurgitation. Tricuspid systolic velocities suggests peak right ventricular systolic pressure of 35 mmHg, consistent with mild pulmonary hypertension. No Pulmonic regurgitation present. Hospital Course Neurology Consultation >> Ambrose Haque MD 1. Agree with management thus far. 2. The patient should be worked up thoroughly for treatable causes of cognitive dysfunction with in addition to the laboratory tests already done, a B12 level, folate level, vitamin D level, RPR, glycohemoglobin, Westergren sedimentation rate, and TSH. 3. An MRI scan of the brain should be performed to evaluate the patient for her mild right paresis. 4. Her urinary tract infection should be treated appropriately. 5. The patient will be observed closely and depending on how she fares over the next day or so, further recommendations will be given. Pulmonary Consultation >> Jarod Duarte MD Assessment/Plan MRI: Periventricular and supratentorial white matter T2 hyperintensity without mass effect, commonly related to sequela of chronic microvascular ischemic changes Cardio and neuro note appreciated telemetry reviewed symptomatic treatment med/surg pt/ot Cardiology Consultation >> Cortez Amezcua MD The patient appears not to have any signs or symptoms of congestive heart failure or coronary artery disease. EKG is unremarkable. She should be maintained on her usual dose of aspirin and Lipitor as well as benazepril, metoprolol, and amlodipine as indicated as her list of home medications as the patient's blood pressure allows and further recommendations will be provided depending on any issues that may come up cardiovascularly, although at the present time, she appears to be stable. She may have a component of urinary tract infection that may be affecting her mentation, but I will leave that up to yourself to evaluate. Discharged course Patient is a 72-year-old female brought in by EMS after increased confusion. Patient had recent been seen by her primary care physician and was sent to the hospital for further evaluation. Patient was noted to have normally oriented 3. Patient had been more confused. This had relatively sudden onset. Patient was brought in by EMS. The patient was poorly cooperative with history. The patient was worked up to determine the cause of encephalopathy. Cardiology performed an echocardiogram which shown no signs of CHF. Over the course of the hospital stay, the patient was treated for possible UTI. She began to feel better and her mind more clearer. On neurological examination at this time, she is disoriented to date, month, and name of the hospital. She has significant problems with recent and remote memory, visuospatial function, higher cognitive function, and language. The CT scan of the brain without contrast is benign. The MRI of the brain done on 12/08/17 revealed no acute pathology but did reveal periventricular and supratentorial white matter T2 hyperintensity without mass effect, related to sequela of chronic microvascular ischemic changes. Laboratory data are relatively benign except for an elevated blood sugar and findings compatible with mild urinary tract infection. She is also folic acid deficient. The patient's history and neurological examination are most compatible with a toxic encephalopathy most probably related to the urinary tract infection with a superimposed underlying progressive cognitive decline, which may be of a primary degenerative nature. It is unclear as to how much the folic acid deficiency could be contributing. Patient stable for discharge. Discharge Condition Upon Discharge: stable Discharge Disposition Patient was discharged to Home (01) See nursing medication reconciliation list for discharge medications. Discharge Diagnoses: (1) Hemiparesis, right (2) Altered mental status (3) Acute encephalopathy (4) History of hypertension (5) Hypercholesteremia (6) Lumbar stenosis (7) HTN (hypertension) Discharge Instructions Discharge Instructions Special Instructions NURSE NOTES: Pt alert and verbally responsive. Not in distress. No c/o pain. No chest congestion. Pt discharge to home. Discharge papers explained and signed. Copy of discharge papers gave to pt. All belongings taken. Skin intact. IV line removed. Pt picked up by friend Kristy Escudero. Note - I have been assigned to do the discharge summary for this patient and did not partake in any care for the patient. Evelyn Puente N.P. Dec 13, 2017 09:17
--- NOTE | 2017-12-15 00:10 | Diagnostic Imaging Report ---
APPROVED REPORT CPT Code: 21907 Vascular Symptoms CVA/TIA: CAROTID (BILATERAL) - Imaging reveals no significant plaque within the right and left extracranial carotid arteries. The Doppler spectral flow analysis is within normal limits throughout the extracranial carotid arteries bilaterally. VERTEBRAL- The vertebral arteries are within normal limits.
== END 2017-12-11 17:05 | disposition home or self-care (01) | DRG 92 ==
LOC: EDBD 17:47 → EMR 19:24 → 2E 19:25 → EDBEDREQ 20:29 → 2E 22:14 → 4W 12-09 14:00
DX: G92 Toxic encephalopathy (principal); N39.0 Urinary tract infection, site not specified; Z79.899 Other long term (current) drug therapy; I10 Essential (primary) hypertension; E66.9 Obesity, unspecified; M48.061 Spinal stenosis, lumbar region without neurogenic claudication; G81.91 Hemiplegia, unspecified affecting right dominant side; E78.00 Pure hypercholesterolemia, unspecified
CPT/HCPCS: 36415; 70450; 70551; 80053; 80061; 81003; 82306; 82607; 82746; 82962; 83036; 83735; 84100; 84443; 84484; 85025; 85610; 85651; 85730; 86592; 87086; 87181; 93005; 93306; 93880; 94664; 94760; 99285